=== PATIENT | male | born 1990 | race Caucasian/White ===

== ENCOUNTER 2021-02-13 14:43 | Emergency (ER) | payer MEDICAID, SELFPAY | END 2021-02-13 18:15 | disposition left against medical advice (07) | PROVIDERS: Emergency Provider Emergency Medicine | DX: Z20.2 Contact with and (suspected) exposure to infections with a predominantly sexual mode of transmission (principal) ==

== ENCOUNTER 2021-04-14 14:39 | Emergency (ER) | payer OTHER, SELFPAY ==
[2021-04-14 14:53] VITALS: BP 151/116; PULSE 120; RESP 18; TEMP 37.2; O2SAT 96; BMI 23.0
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
[2021-04-14] MEDS: cefTRIAXone sodium 500 MG, Lidocaine HCl 1 % MPF 1 ML IM (16:24)
[2021-04-14 16:41] VITALS: BP 130/69; PULSE 120; RESP 18; O2SAT 96
[2021-04-15 09:10] LABS: CT PCR NOT DETECTED (Not Detect.); NG PCR NOT DETECTED (Not Detect.)
== END 2021-04-14 16:48 | disposition home or self-care (01) ==
PROVIDERS: Physician Assistant; Emergency Provider Emergency Medicine
DX: A64 Unspecified sexually transmitted disease (principal)
CPT/HCPCS: 87491; 87591; 99283; J0696

== ENCOUNTER 2021-11-11 15:26 | Emergency (ER) | payer OTHER, SELFPAY ==
[2021-11-11 15:48] VITALS: BP 147/88; PULSE 81; RESP 18; TEMP 37.2; O2SAT 99; BMI 24.0
[2021-11-11 16:29] LABS: MANUAL DIFF FLAG NO
[2021-11-11 16:33] LABS: Basophils Absolute Auto 0.1 X10*3/uL (0.0-0.2); Basophils Percent Auto 0.6 % (0-2); Eosinophils Absolute Auto 0.1 X10*3/uL (0.0-0.4); Eosinophils Percent Auto 0.7 % (0-4); Hematocrit 42.8 % (42.0-52.0); Hemoglobin 14.2 g/dl (14.0-18.0); Imm Gran Abs Auto 0.03 X10*3/uL (0.00-0.03); Imm Gran Pct Auto 0.3 % (0.0-0.4); Mean Corpuscular HGB Conc 33.2 g/dl (31.0-36.0); Mean Corpuscular Hemoglobin 30.5 pg (27.0-33.0); Mean Platelet Volume 8.6 fL (9.4-12.4); Monocytes Absolute Auto 0.6 X10*3/uL (0.1-1.2); Monocytes Percent Auto 7.2 % (2-11); Neutrophils Absolute Auto 6.9 x10*3/uL (2.0-8.3); Neutrophils Percent Auto 79.2 % (45-73); Platelet Count 388 X10*3/uL (160-400); Red Blood Count 4.65 X10*6/uL (4.60-5.80); Red Cell Distribution Width 11.1 % (11.0-16.0); White Blood Count 8.7 X10*3/uL (4.8-10.8)
[2021-11-11 16:47] LABS: COVID-19 Test Negative (Negative); IDNOW Serial# 16C4AD1C
[2021-11-11 16:51] LABS: Alanine Aminotransferase 22 U/L (0-40); Albumin Level 4.6 g/dL (3.5-5.0); Alkaline Phosphatase 72 U/L (39-117); Anion Gap 15 (12-20); Aspartate Amino Transferase 38 U/L (5-37); Bilirubin Direct 0.4 mg/dL (0.0-0.5); Bilirubin Total 0.7 mg/dL (0.0-1.0); Blood Urea Nitrogen 10 mg/dL (9-16); Calcium 10.1 mg/dL (8.4-10.2); Carbon Dioxide 25 mmol/L (22-29); Chloride 103 mmol/L (96-108); Creatinine Clr Calc Pharmacy 141.5; Estimated Glomerular Filt Rate > 60; Glucose Random 101 mg/dL (60-115); Lipase 18 U/L (8-78); Potassium 4.4 mmol/L (3.3-5.1); Sodium 139 mmol/L (135-145); Total Protein 7.2 g/dL (6.5-8.0)
[2021-11-11] MEDS: Ondansetron ODT 4 MG TAB.RAPDIS TRANSLINGU (17:22)
== END 2021-11-11 22:37 | disposition left against medical advice (07) ==
PROVIDERS: Emergency Provider Emergency Medicine
DX: R51.9 Headache, unspecified (principal); R11.0 Nausea; Z20.822 Contact with and (suspected) exposure to COVID-19
CPT/HCPCS: 80048; 80076; 83690; 85025; 87635; 99281; 99283

== ENCOUNTER 2022-03-24 21:46 | Emergency (ER) | payer MEDICAID, SELFPAY ==
--- NOTE | 2022-03-24 | ECG_ITS ---
Test Reason : tacardya Blood Pressure : / mmHG Vent. Rate : 124 BPM Atrial Rate : 124 BPM P-R Int : 124 ms QRS Dur : 078 ms QT Int : 300 ms P-R-T Axes : 075 072 085 degrees QTc Int : 431 ms Sinus tachycardia Otherwise normal ECG No previous ECGs available Referred By: Generic ED Physician Electronically Signed By:Hadley Allan
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
[2022-03-24 21:52] VITALS: BP 137/103; PULSE 130; RESP 20; TEMP 36.8; O2SAT 98; BMI 24.4
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
[2022-03-25 00:12] VITALS: BP 147/104; PULSE 115; RESP 13; TEMP 36.8; O2SAT 98
[2022-03-25] MEDS: Acetaminophen 325 MG TABLET 650 MG PO (00:39)
[2022-03-25 00:49] LABS: Carbon Monoxide POC 1.5 %
[2022-03-25 01:06] LABS: Carbon Monoxide Refer to POC result
[2022-03-25 02:53] VITALS: BP 136/98; PULSE 95; RESP 12; TEMP 36.8; O2SAT 96
== END 2022-03-25 03:13 | disposition home or self-care (01) ==
PROVIDERS: Emergency Provider Emergency Medicine
DX: R51.9 Headache, unspecified (principal); Z77.29 Contact with and (suspected) exposure to other hazardous substances
CPT/HCPCS: 36415; 70450; 82375; 93005; 99284

== ENCOUNTER 2022-12-17 13:01 | Emergency (ER) | payer OTHER, SELFPAY ==
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
[2022-12-17 13:50] VITALS: BP 143/79; PULSE 94; RESP 16; TEMP 36.9; O2SAT 96; BMI 23.6
[2022-12-17 14:00] LABS: MANUAL DIFF FLAG NO
[2022-12-17 14:02] LABS: Basophils Absolute Auto 0.1 X10*3/uL (0.0-0.2); Basophils Percent Auto 0.8 % (0-2); Eosinophils Absolute Auto 0.1 X10*3/uL (0.0-0.4); Eosinophils Percent Auto 0.9 % (0-4); Hematocrit 47.2 % (42.0-52.0); Hemoglobin 16.1 g/dl (14.0-18.0); Imm Gran Abs Auto 0.04 X10*3/uL (0.00-0.03); Imm Gran Pct Auto 0.3 % (0.0-0.4); Lymphocytes Absolute Auto 2.2 X10*3/uL (1.2-4.9); Lymphocytes Percent Auto 19.1 % (20-40); Mean Corpuscular HGB Conc 34.1 g/dl (31.0-36.0); Mean Corpuscular Hemoglobin 31.4 pg (27.0-33.0); Mean Platelet Volume 8.6 fL (9.4-12.4); Monocytes Percent Auto 8.5 % (2-11); Neutrophils Absolute Auto 8.1 x10*3/uL (2.0-8.3); Neutrophils Percent Auto 70.4 % (45-73); Platelet Count 442 X10*3/uL (160-400); Red Blood Count 5.13 X10*6/uL (4.60-5.80); Red Cell Distribution Width 12.5 % (11.0-16.0); White Blood Count 11.6 X10*3/uL (4.8-10.8)
[2022-12-17 14:48] LABS: Anion Gap 15 (12-20)
[2022-12-17 14:56] LABS: Acetaminophen LAB < 3 mcg/mL (<30); Alanine Aminotransferase 24 U/L (0-40); Alkaline Phosphatase 77 U/L (39-117); Aspartate Amino Transferase 20 U/L (5-37); Bilirubin Total 0.7 mg/dL (0.0-1.0); Blood Urea Nitrogen 14 mg/dL (9-16); Carbon Dioxide 26 mmol/L (22-29); Chloride 105 mmol/L (96-108); Creatinine Clr Calc Pharmacy 122.5; Estimated Glomerular Filt Rate > 60; Ethanol < 10 mg/dL; Glucose Random 102 mg/dL (60-115); Magnesium 2.3 mg/dL (1.6-2.6); Potassium 3.5 mmol/L (3.3-5.1); Salicylate < 5.0 mg/dL (15-30); Sodium 142 mmol/L (135-145); Total Protein 8.1 g/dL (6.5-8.0)
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
[2022-12-17] MEDS: cefTRIAXone sodium 500 MG, Lidocaine HCl 1 % MPF 1 ML IM (15:18)
[2022-12-17] MEDS: metroNIDAZOLE 500 MG TABLET PO (15:18)
[2022-12-17] MEDS: Doxycycline Monohydrate 100 MG CAPSULE PO (15:18)
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
[2022-12-18 05:14] LABS: Syphilis Screen Reactive (Nonreactive)
[2022-12-25 15:20] LABS: RPR Quantitative Reactive 1:1 (Nonreactive); T.Pallidum Particle Agg Test Reactive (Nonreactive)
== END 2022-12-17 15:41 | disposition home or self-care (01) ==
PROVIDERS: Physician Assistant; Emergency Provider Student in an Organized Health Care Education/Training Program
DX: A53.9 Syphilis, unspecified (principal); F41.1 Generalized anxiety disorder; F43.0 Acute stress reaction; T76.21XA Adult sexual abuse, suspected, initial encounter; Z20.2 Contact with and (suspected) exposure to infections with a predominantly sexual mode of transmission; Z79.899 Other long term (current) drug therapy
CPT/HCPCS: 36415; 80053; 80143; 80179; 80307; 83735; 85025; 86592; 86780; 87255; 96372; 99283; 99284; J0696

== ENCOUNTER 2023-02-04 16:56 | Emergency (ER) | payer OTHER, SELFPAY ==
--- NOTE | 2023-02-04 17:05 | ED_ITS ---
HPI - Male Genitourinary General Chief complaint: Urogenital-Male Stated complaint: STD check Time Seen by Provider: 02/04/23 17:38 Source: patient Mode of arrival: ambulatory Limitations: no limitations History of Present Illness HPI Narrative: 32-year-old male presents to the emergency department requesting syphilis testing, patient tested positive in December, patient went away and has not received treatment ever since. Patient has not had any new sexual partners since then or has not been sexually active. No urinary complaints no fevers, chills, headache, vision changes, altered mental status, nausea, vomiting, chest pain and shortness of breath Related Data Previous Rx's Medication Instructions Recorded doxycycline hyclate 100 mg capsule 100 mg PO BID #14 caps 04/14/21 doxycycline hyclate 100 mg capsule 100 mg PO BID 10 days #20 caps 12/17/22 metronidazole 500 mg tablet 500 mg PO BID 7 days #14 tabs 12/17/22 valacyclovir 1 gram tablet 1,000 mg PO BID 5 days #10 tabs 12/17/22 (Valtrex) Allergies Allergy/AdvReac Type Severity Reaction Status Date / Time No Known Allergies Allergy Verified 11/11/21 15:48 [No Known Allergies*] Review of Systems Review of Systems: Constitutional : No Weight loss, No Fever, No Chills, No Fatigue, No Malaise ENT/Mouth : No sore throat, No Rhinorrhea Eyes: No Eye Pain, No Swelling, No Redness Cardiovascular : No Chest Pain, No SOB, No Dyspnea on Exertion, No Orthopnea, No Edema, No Palpitations Respiratory : No Cough, No Sputum, No Wheezing Gastrointestinal : No Nausea, No Vomiting, No Diarrhea, No Constipation, No abdominal Pain, No Hematochezia, No Melena Genitourinary : No Dysuria, No Urinary Frequency, No Hematuria, Musculoskeletal : No joint pain, No Myalgias, No Joint Swelling Skin : No Skin Lesions, No rash Neuro : No Weakness, No Numbness, No Dizziness, No Headache Psych : No Anxiety/Panic, No Depression All other systems reviewed and are negative Yes all other systems are reviewed and are negative [facility] Past Medical History Attestation statement: The following information was validated with the patient. Source: old records reviewed and nursing notes reviewed Physical Exam Vital Signs: Vital Signs: Last Vital Signs Temp 97.8 F 02/04/23 17:07 Pulse 97 02/04/23 17:07 Resp 14 02/04/23 17:07 BP 135/84 02/04/23 17:07 Pulse Ox 96 02/04/23 17:07 O2 Del Method Room Air 02/04/23 17:07 BMI result Body Mass Index 24.8 vss Appearance: Alert.? Oriented X3.? No acute distress.? Head: Normocephalic, atraumatic, no step-offs or deformities CVS:? Pulses normal.? Respiratory: No respiratory distress. Skin: Skin warm and dry.? Normal skin color.? Normal skin turgor.? Extremities: No lower extremity edema.? No calf ttp. 5/5 strength to bilateral upper and lower extremities Neuro: Oriented X 3.? No motor deficit.? No sensory deficit. CN 2-12 intact Course Course Course Narrative: RME: 32 yo M w/PMHx Syphilis+ (Dec) presenting to the ED for syphilis tx. States he was not in the area & has not seeked tx for Syphilis since getting phone call that he was positive. Denies being sexually active since + testing. denies other sx at present CTNG testing ordered (as was not performed in Dec) Will need Tx for Syphilis Full HPI, ROS and PE to be performed by primary ED provider. Medical Decision Making Medical Decision Making [facility] Narrative: 32-year-old male presents requesting syphilis testing Physical exam benign History and physical exam concerning for STD. Will test for gonorrhea and chlamydia. HIV should be tested for in an outpatient setting same as hepatitis. Will treat with penicillin G. Educated patient on diagnosis and treatment plan, answered all question, patient verbalizes understanding. At this time patient will be discharged home, advised to return with new or worsening symptoms. Educated on worrisome signs and symptoms and when to return. At this time I feel comfortable discharge home. Differential Diagnosis Differential Diagnoses: The differential diagnosis associated with the presentation includes History and physical exam concerning for STD. Will test for gonorrhea and chlam ydia. HIV should be tested for in an outpatient setting same as hepatitis. Admission/Observation Consideration of admission/observation: Escalation of care including admission/observation considered Lab Data [facility] Lab Attestation statement: I reviewed the patient's lab results. Labs: Lab Results 02/04/23 Range/Units 17:20 Urine Color Yellow Urine Appearance Clear Urine pH 5.5 (5.0-9.0) Ur Specific [place] 1.020 (1.005-1.025) Urine Protein Negative (Neg-Trace) mg/dL Urine Glucose (UA) Negative (Negative) mg/dL Urine Ketones Negative (Negative) mg/dL Urine Blood Moderate (2+) H (Negative) Urine Nitrite Negative (Negative) Ur Leukocyte Esterase Negative (Negative) Urine RBC 11-20 H (0-2) /HPF Urine WBC 0-5 (0-5) /HPF Ur Squamous Epith Cells 0-2 (0-2) /HPF Urine Bacteria None Seen (None Seen) Hyaline Casts 0-2 (0-2) /LPF Discharge Plan Discharge Clinical Impression: Syphilis Patient Disposition: Home, Self-Care Additional Instructions: Take your medications as prescribed. If you were prescribed antibiotics today, it is important that you take your medication to their entirety, do not skip any doses, do not finish them early. Follow-up with your primary care provider this week. Return to the emergency department with new or worsening symptoms. Such as fevers, chills, chest pain, shortness of breath, nausea, vomiting, dizziness, headache, vision changes, lethargy In case of emergency call 911 Please get full panel STD testing done by her primary care provider. Including HIV, hepatitis-C Prescriptions: No Action doxycycline hyclate 100 mg capsule 100 mg PO BID Qty: 14 0RF doxycycline hyclate 100 mg capsule 100 mg PO BID 10 Days Qty: 20 0RF metronidazole 500 mg tablet 500 mg PO BID 7 Days Qty: 14 0RF valacyclovir [Valtrex] 1 gram tablet 1,000 mg PO BID 5 Days Qty: 10 0RF Referrals: Physician,None [Primary Care Provider] - 2 days
[2023-02-04 17:07] VITALS: BP 135/84; PULSE 97; RESP 14; TEMP 36.6; O2SAT 96; BMI 24.8
[2023-02-04 17:30] LABS: Appearance Urine Clear; Color Urine Yellow; Glucose Urine UA Negative (Negative); Leukocyte Esterase Urine Negative (Negative); Nitrite Urine Negative (Negative); PH 5.5 (5.0-9.0); UMIC TRIGGER UACC YES; Urine Blood Moderate (2+) (Negative); Urine Ketones Negative (Negative); Urine Protein Negative (Neg-Trace)
[2023-02-04 17:32] LABS: Bacteria Urine None Seen (None Seen); Hyaline Casts Urine 0-2 /LPF (0-2); Squamous Epithelial Cell Urine 0-2 /HPF (0-2); WBC Urine 0-5 /HPF (0-5)
[2023-02-04 17:43] VITALS: BP 135/97; PULSE 79; RESP 16; TEMP 36.7; O2SAT 98
[2023-02-04] MEDS: Penicillin G Benzathine 2,400,000 UNIT/4 ML SYRINGE 2400000 UNIT IM (17:51)
[2023-02-05 02:47] LABS: CT PCR NOT DETECTED (Not Detect.); NG PCR NOT DETECTED (Not Detect.)
== END 2023-02-04 18:25 | disposition home or self-care (01) ==
PROVIDERS: Physician Assistant; Emergency Provider Emergency Medicine
DX: A53.9 Syphilis, unspecified (principal)
CPT/HCPCS: 0353U; 81001; 96372; 99284; J0561

== ENCOUNTER 2024-03-12 14:47 | Emergency (ER) | payer MEDICAID, SELFPAY ==
[2024-03-12 15:22] VITALS: BP 128/84; PULSE 100; RESP 19; TEMP 36.6; O2SAT 99; BMI 22.4
--- NOTE | 2024-03-12 15:22 | ED.LOWEXIN ---
HPI - Extremity Injury (Lower) General Chief Complaint: Extremity Injury, Lower Stated Complaint: swollen feet Time Seen by Provider: 03/12/24 15:49 Source: patient, RN notes reviewed and old records reviewed Mode of arrival: ambulatory Limitations: altered mental status History of Present Illness ED Provider: Migdalia GERMAN Narrative: Patient is a 33-year-old male denies past medical history presenting to the emergency department with complaint of bilateral foot pain and swelling after sleeping outside last night. Denies fevers, chills, body aches. Denies drug or alcohol use. History limited as patient appears intoxicated. Denies chest pain, palpitations, dyspnea. Other symptoms: none Related Data Previous Rx's ?Medication ?Instructions ?Recorded doxycycline hyclate 100 mg capsule 100 mg PO BID #14 caps 04/14/21 doxycycline hyclate 100 mg capsule 100 mg PO BID 10 days #20 caps 12/17/22 metronidazole 500 mg tablet 500 mg PO BID 7 days #14 tabs 12/17/22 valacyclovir 1 gram tablet 1,000 mg PO BID 5 days #10 tabs 12/17/22 (Valtrex) Allergies Allergy/AdvReac Type Severity Reaction Status Date / Time No Known Allergies Allergy Verified 03/12/24 15:24 [No Known Allergies*] Review of Systems Review of Systems: As per HPI. Yes all other systems are reviewed and are negative [facility] Social History Social History Smoked in Last 30 Days: Yes Use of substances other than those prescribed or required for medical reasons: No Advance Directives: No Advance Directives Information Provided: No Do you have a plan to hurt others: No Plan Physical Exam Vital Signs: Vital Signs: Last Vital Signs Temp 0 F L 03/12/24 19:44 Pulse 98 03/12/24 19:44 Resp 18 03/12/24 19:44 BP 134/95 H 03/12/24 19:44 Pulse Ox 96 03/12/24 19:44 O2 Del Method Room Air 03/12/24 15:43 BMI result Body Mass Index 22.4 Vital signs have been reviewed and appear to be correct. Blood pressure normal. Heart rate normal. Respiratory rate normal. Temperature normal. Oxygen saturation normal. Const: General: cooperative, no acute distress and intoxicated appearing (wakes to voice, answers 1-2 questions, then falls back asleep) Nutritional Appearance: average body habitus Orientation/consciousness: patient oriented x3 HEENT: Head: Yes normocephalic and Yes atraumatic Ears: hearing grossly normal bilaterally and external ears normal General nose exam: Normal external nose present and Normal nasal mucous membranes and turbinates present Mouth: Normal oral and palatal mucosa present and oropharynx normal Throat: Yes uvula midline Eyes: Pupils: Equal, round and reactive pupils present Neck: Neck: Yes full ROM, Yes trachea midline and Yes supple Resp: Effort & Inspection: normal respiratory effort Auscultation: clear to auscultation bilaterally Cardio: Rate: regular rate Rhythm: regular rhythm Heart sounds: S1 normal heart sound present and S2 normal heart sound present Peripheral pulses: Peripheral pulses 2+ throughout GI: Inspection: Yes normal to inspection Palpation (GI): Soft to palpation and nontender Auscultation: normoactive bowel sounds : General: Yes no CVA tenderness Back/Spine/Pelvis: Back: no CVA tenderness Skin: General skin exam: elasticity normal and turgor normal Neuro: General: patient oriented x3 and moves all extremities Cranial nerves: Yes Equal, round and reactive pupils present Extrem: General: Yes pedal edema (2+) Right lower extremity: foot Details: vascular exam Details: dorsalis pedis pulse present and normal capillary refill Left lower extremity: foot Details: vascular exam Details: dorsalis pedis pulse present, posterior tibial pulse present and normal capillary refill Course Course Course Narrative: This is a Rapid Medical Exam performed in triage by Juana Rene PA-C. Full HPI, ROS and PE to be performed by primary ED provider. 33 yo M presenting to the ED c/o b/l feet swelling & pain x last night s/p spending the night outside. Denies substance use today. Denies IVDA PE: +under the influence, +b/l LE swelling, erythema, warmth & ttp. NV intact Plan: Labs, GOLD Medical Decision Making Medical Decision Making MDM Narrative: Patient is a 33-year-old male denies past medical history presenting to the emergency department with complaint of bilateral foot pain and swelling after sleeping outside last night. On exam patient is awake, A+Ox3, VS WNL, afebrile, lethargic/intoxicated appearing but wakes to voice, physical exam findings as above. Given reported symptoms and physical exam findings, initial differential includes but is not limited to cellulitis, dependent edema, frostbite. Physical exam findings not consistent with cellulitis or frostbite. Labs notable for no leukocytosis, anemia not at transfusable level and no recent for comparison, no elevation of ESR/CRP, normal BNP. EKG shows normal sinus rhythm. Patient became more awake and alert while in the ED,now requesting discharge. Discussed with patient that symptoms likely due to dependent edema, advised him to keep legs elevated while at rest. Return precautions discussed at bedside. Patient verbalized understanding of and agreement with plan. Differential Diagnosis Differential Diagnoses: The differential diagnosis associated with the presentation includes As per [facility] Admission/Observation Consideration of admission/observation: Escalation of care including admission/observation considered Patient would have been admitted to the hospital had their work up had any findings where hospital admission was appropriate and their clinical presentation warranted hospital admission. Lab Data [facility] Lab Attestation statement: I reviewed the patient's lab results. As per [facility] 03/12/24 15:32 03/12/24 15:32 Labs: Lab Results 03/12/24 03/12/24 Range/Units 15:32 17:50 WBC 10.4 (4.8-10.8) X10*3/uL RBC 4.25 L (4.60-5.80) X10*6/uL Hgb 13.3 L (14.0-18.0) g/dl Hct 38.3 L (42.0-52.0) % MCV 90.1 (80.0-98.0) fL MCH 31.3 (27.0-33.0) pg MCHC 34.7 (31.0-36.0) g/dl RDW 11.1 (11.0-16.0) % Plt Count 483 H (160-400) X10*3/uL MPV 8.2 L (9.4-12.4) fL Immature Gran % (Auto) 0.3 (0.0-0.4) % Neut % (Auto) 64.5 (45-73) % Lymph % (Auto) 23.8 (20-40) % Lipscomb % (Auto) 9.0 (2-11) % Eos % (Auto) 1.7 (0-4) % Baso % (Auto) 0.7 (0-2) % Lymph # (Auto) 2.5 (1.2-4.9) X10*3/uL Lipscomb # (Auto) 0.9 (0.1-1.2) X10*3/uL Eos # (Auto) 0.2 (0.0-0.4) X10*3/uL Baso # (Auto) 0.1 (0.0-0.2) X10*3/uL Abs Immat Gran (auto) 0.03 (0.00-0.03) X10*3/uL Absolute Neuts (auto) 6.7 (2.0-8.3) x10*3/uL Absolute Nucleated RBC 0.000 (0.0-0.012) X10*3/uL Nucleated RBC % (auto) 0.0 (0.0-0.2) /100WBC ESR 13 (0-15) MM/HR PT 12.3 (10.9-12.4) SEC INR 1.1 (0.9-1.1) Sodium 143 (135-145) mmol/L Potassium 3.8 (3.3-5.1) mmol/L Chloride 107 (96-108) mmol/L Carbon Dioxide 26 (22-29) mmol/L Anion Gap 14 (12-20) BUN 16 (9-16) mg/dL Creatinine 0.82 (0.5-1.4) mg/dL Estim Creat Clear Calc 133.5 Estimated GFR > 60 Random Glucose 103 (60-115) mg/dL Calcium 9.1 D (8.4-10.2) mg/dL Magnesium 1.9 (1.6-2.6) mg/dL Total Bilirubin 0.2 (0.0-1.0) mg/dL Direct Bilirubin < 0.2 (0.0-0.5) mg/dL AST 24 (5-37) U/L ALT 16 (0-40) U/L Alkaline Phosphatase 107 (39-117) U/L C-Reactive Protein 0.50 (< or = 0.50) mg/dL B-Natriuretic Peptide < 10 (<100) pg/mL Total Protein 7.1 (6.5-8.0) g/dL Albumin 4.1 (3.5-5.0) g/dL Urine Opiates Screen Not Detected (Not Detect) Ur Buprenorphine Scrn Not Detected (Not Detect) ng/mL Ur Oxycodone Screen Not Detected (Not Detect) ng/mL Urine Methadone Screen Not Detected (Not Detect) ng/mL Urine Fentanyl Screen Not Detected (Not Detect) Ur Barbiturates Screen Not Detected (Not Detect) Ur Phencyclidine Scrn Not Detected (Not Detect) Ur Amphetamines Screen POSITIVE H (Not Detect) U Benzodiazepines Scrn Not Detected (Not Detect) Urine Cocaine Screen Not Detected (Not Detect) U Marijuana (THC) Screen Not Detected (Not Detect) Ethyl Alcohol < 10 mg/dL Independent Interpretation I performed an independent interpretation of an: EKG (normal sinus rhythm, rate 91bpm, normal MS interval and QTc) External Record Review External record reviewed: Inpatient record, Office record and Outpatient record Attestation Attending Attestation: I was personally present and available for consultation in the ED. I have reviewed everything on the chart that is available and agree with the documentation provided by the MICHAEL including discussion about the assessment, treatment plan and discussion. Based on medical record the care appears appropriate. Hao Shipley MD [facility] Emergency Medicine Discharge Plan Discharge Clinical Impression: Pedal edema Patient Disposition: Home, Self-Care Instructions: Leg Edema (ED), Edema (ED) Additional Instructions: You were evaluated in the emergency department today for foot pain and swelling. Your feet do not appear acutely infected at this time. We recommend that you keep your feet elevated while at rest to decrease the swelling. Follow up with your primary care provider or the clinic. Return to the emergency department for increased redness, swelling, fever, change of color in your feet/legs. Prescriptions: No Action doxycycline hyclate 100 mg capsule 100 mg PO BID Qty: 14 0RF doxycycline hyclate 100 mg capsule 100 mg PO BID 10 Days Qty: 20 0RF metronidazole 500 mg tablet 500 mg PO BID 7 Days Qty: 14 0RF valacyclovir [Valtrex] 1 gram tablet 1,000 mg PO BID 5 Days Qty: 10 0RF Interventions: ED Discharge Assessment Last Done: 03/12/24 19:44 Discharge Date/Time: 03/12/24 19:46 Print Language: Stateless
[2024-03-12 15:38] LABS: MANUAL DIFF FLAG NO
[2024-03-12 15:40] LABS: Basophils Absolute Auto 0.1 X10*3/uL (0.0-0.2); Basophils Percent Auto 0.7 % (0-2); Eosinophils Absolute Auto 0.2 X10*3/uL (0.0-0.4); Eosinophils Percent Auto 1.7 % (0-4); Hematocrit 38.3 % (42.0-52.0); Hemoglobin 13.3 g/dl (14.0-18.0); Imm Gran Abs Auto 0.03 X10*3/uL (0.00-0.03); Imm Gran Pct Auto 0.3 % (0.0-0.4); Lymphocytes Absolute Auto 2.5 X10*3/uL (1.2-4.9); Lymphocytes Percent Auto 23.8 % (20-40); Mean Corpuscular HGB Conc 34.7 g/dl (31.0-36.0); Mean Corpuscular Hemoglobin 31.3 pg (27.0-33.0); Mean Corpuscular Volume 90.1 fL (80.0-98.0); Mean Platelet Volume 8.2 fL (9.4-12.4); Monocytes Absolute Auto 0.9 X10*3/uL (0.1-1.2); Neutrophils Absolute Auto 6.7 x10*3/uL (2.0-8.3); Neutrophils Percent Auto 64.5 % (45-73); Platelet Count 483 X10*3/uL (160-400); Red Blood Count 4.25 X10*6/uL (4.60-5.80); Red Cell Distribution Width 11.1 % (11.0-16.0); White Blood Count 10.4 X10*3/uL (4.8-10.8)
[2024-03-12 15:43] VITALS: BP 134/95; PULSE 98; RESP 11; O2SAT 96
[2024-03-12 15:46] LABS: INTERNATIONAL NORM RATIO 1.1 (0.9-1.1); Prothrombin Time 12.3 SEC (10.9-12.4)
--- NOTE | 2024-03-12 15:49 | PC.NURSE ---
security came and checked the patient's bag and patted him down as very sleepy when he first arrived. refusing to obtain a urine sample at this time. Nothing was found in his bags or on his person
[2024-03-12 15:54] LABS: Alanine Aminotransferase 16 U/L (0-40); Albumin Level 4.1 g/dL (3.5-5.0); Alkaline Phosphatase 107 U/L (39-117); Anion Gap 14 (12-20); Aspartate Amino Transferase 24 U/L (5-37); Bilirubin Direct < 0.2 mg/dL (0.0-0.5); Bilirubin Total 0.2 mg/dL (0.0-1.0); Blood Urea Nitrogen 16 mg/dL (9-16); Calcium 9.1 mg/dL (8.4-10.2); Carbon Dioxide 26 mmol/L (22-29); Chloride 107 mmol/L (96-108); Creatinine Clr Calc Pharmacy 133.5; Estimated Glomerular Filt Rate > 60; Glucose Random 103 mg/dL (60-115); Magnesium 1.9 mg/dL (1.6-2.6); Potassium 3.8 mmol/L (3.3-5.1); Sodium 143 mmol/L (135-145); Total Protein 7.1 g/dL (6.5-8.0)
[2024-03-12 16:02] LABS: B Type Natriuretic Peptide < 10 pg/mL (<100)
--- NOTE | 2024-03-12 16:07 | ECG_ITS ---
Test Reason : cp Blood Pressure : */* mmHG Vent. Rate : 91 BPM Atrial Rate : 91 BPM P-R Int : 136 ms QRS Dur : 88 ms QT Int : 344 ms P-R-T Axes : 74 55 69 degrees QTcB Int : 423 ms Normal sinus rhythm Normal ECG When compared with ECG of 24-Mar-2022 22:01, No significant change was found Referred By: Marilee Negron Electronically Signed By: KAMALA CHERY
[2024-03-12 16:27] LABS: Erythrocyte Sedimentation Rate 13 MM/HR (0-15)
[2024-03-12 18:23] LABS: Amphetamine Screen Urine POSITIVE (Not Detect); Barbiturates, Urine Not Detected (Not Detect); Benzodiazepines Screen Urine Not Detected (Not Detect); Buprenorphine Scr Not Detected (Not Detect); Cannabinoid Screen Urine Not Detected (Not Detect); Cocaine Screen Urine Not Detected (Not Detect); Fentanyl, urine Not Detected (Not Detect); Methadone Screen, Urine Not Detected (Not Detect); Opiate Screen Urine Not Detected (Not Detect); Oxycodone Screen Urine Not Detected (Not Detect); Phencyclidine Screen Urine Not Detected (Not Detect)
--- NOTE | 2024-03-12 19:36 | PC.NURSE ---
This RN assumed pt care @ 1900. This RN asked pt if he could supply UA, pt began to use profanity and yell for food. Plan of care ongoing.
[2024-03-12 19:44] VITALS: BP 134/95; PULSE 98; RESP 18; TEMP -17.7; TEMP 0; O2SAT 96
[2024-03-12 19:49] LABS: Ethanol < 10 mg/dL
== END 2024-03-12 19:46 | disposition home or self-care (01) ==
PROVIDERS: Physician Assistant; Registered Nurse Emergency; Emergency Provider Emergency Medicine
DX: R60.0 Localized edema (principal); M79.672 Pain in left foot; M79.671 Pain in right foot
CPT/HCPCS: 36415; 80048; 80076; 80307; 83735; 83880; 85025; 85610; 85652; 86140; 93005; 99284

== ENCOUNTER → 2024-03-12 16:07 | Outpatient (BNV) | payer MEDICAID, SELFPAY | PROVIDERS: Emergency Provider Emergency Medicine; Visit Provider Internal Medicine | DX: R07.9 Chest pain, unspecified (principal) | CPT/HCPCS: 93010 ==

== ENCOUNTER 2024-08-31 01:01 | Emergency (ER) | payer MEDICAID, SELFPAY ==
[2024-08-31 01:15] VITALS: BP 126/87; PULSE 83; RESP 20; TEMP 36.6; O2SAT 97; BMI 25.4
--- OUTSIDE RECORDS SUMMARY | 2024-08-31 01:26 | XMS_ITS | Clinical Summary ---
Author Organization [facility] Address [address] [place] [address] Care Team Providers Care Parts Department Supervisor Name Role Phone Pcp, No Primary Care Provider Unavailabl e Allergies No known active allergies Medications * This document contains information received from the source organization and may not represent a complete record from that organization. risperiDONE (RisperDAL) 0.5 MG tabletIndicatio ns:Schizoaffect jose disorder, bipolar type (HCC) Take 1 tablet (0.5 mg total) by mouth 2 (two) times a day. 20 tablet 2 06/25/2021 Active traZODone (DESYREL) 50 MG tabletIndicatio ns:Schizoaffect jose disorder, bipolar type (HCC) Take 1 tablet (50 mg total) by mouth nightly as needed for sleep. 10 tablet 06/25/2021 Active Active Problems Problem Noted Date Diagnosed Date Agitation 11/16/2023 Methamphetamine abuse 06/20/2021 Schizoaffective disorder, bipolar type 2 Alteration in patient safety due to identified s uicide risk 12/31/2020 Overview (12/31/2020): Images from the original note were not included. [place] [facility] [place] [address] MY SAFETY PLAN Name: Lester Eduardo Date: 12/31/2020 MR#: [id number] The one thing that is most important to me and worth living for is: My sons, my well-being, my family, friends, girlfriends. Step 1 - Warning Signs [thoughts, images, mood, situation, behavior] that a crisis may be developin. Depression 2. Lonely feelings 3. Abandonment feelings Step 2 - Coping strategies: things I can do to take my mind off of my problems without contacting others [relaxation technique; physical exercise] 1. Reading 2. Cooking 3. Movies Step 3 - People and social settings that provide distraction 1. Name: Hannah Duran 2. Name: Mom (Uyen Mascorro) 3. Place: [facility] 4. Place: Mall and grocery store Step 4 - People whom I can ask for help: 1. Name: Hannah 2. Name: Jordon 3. Name: Phone: Step 5 - Professionals or agencies I can contact during a crisis 1. Name: [facility] Phone: 2. Name: [facility] 3. Name: Phone: Additional Resources: [place] infoline 211, Suicide Prevention Lifeline 5-872-578-WHDT (7764), Text Hello to 443505, 417 Step 6 - Making the environment safe/access to guns: No access to guns This tool has been adapted from the [employer] Safety Plan [facility] Form 412694 R10-18 Pg 1 of 1 GERD (gastroesophageal reflux disease) 1 Schizoaffective disorder 12/25/2020 Encounters * This document contains information received from the source organization and may not represent a complete record from that organization. Date Type Department Care Team Description 08/21/2024 12:13 PM EDT - 08/21/2024 12:58 PM EDT Emergency [facility] Emergency Department [address] [place] [id number] Superficial laceration of face (Primary Dx) Discharge Disposition: Home or Self Care 08/21/2024 Travel 07/10/2024 6:56 AM EDT - 07/10/2024 12:32 PM EDT Emergency [facility] Emergency Department [address] [facility] [place] [address] Po Hawk MD Homelessness (Primary Dx) Discharge Disposition: Home or Self Care 07/10/2024 Travel 06/25/2024 6:55 PM EDT - 06/27/2024 8:58 AM EDT Hospital Encounter [facility] Emergency Department [address] [facility] [place] [address] Lissy Galvan MD Methamphetamine dependence, continuous (HCC) (Primary Dx); Schizoaffective disorder (HCC); Abrasion, nose w/o infection; Right-sided chest pain; Schizoaffective disorder, subchronic condition (HCC); Other chest pain; Nose abrasion, non-infected; Accidentally struck by stationary object, initial encounter; Hallucinogen abuse, continuous (HCC); Anxiety disorder of childhood or adolescence; Attention deficit hyperactivity disorder (ADHD), unspecified ADHD type; Depressive type psychosis; Cigarette smoker; Previous known suicide attempt; Lack of housing Discharge Disposition: Home or Self Care 06/25/2024 Travel from Last 3 Months Immunizations Immunization Administration Dates Next Due Influenza Inactivated/Split Preservative Free IM 06/25/2021(),12/31/2020 Family History Medical History Relation Name Comments No Known Problems Father No Known Problems Mother Relation Name Status Comments Father Mother Social History Tobacco Use Types Packs/Day Years Used Date Smoking Tobacco: Every Day Cigarettes Smokeless Tobacco: Never Tobacco Cessation:Ready to Q uit: No; Counseling Given: Yes Alcohol Use Standard Drinks/Week Comments Not Currently 0 (1 standard drink = 0.6 oz pur e alcohol) Pt reports he drinks socialy Sex and Gender Information Value Date Recorded Sex Assigned at Male 12/25/2020 7:08 AM EST Legal Sex Male 5:26 PM EST Gender Identity Male 12/25/2020 7:08 AM EST Sexual Orientation Choose not to disclose 2021 12:05 PM EST Sexual Orientation Heterosexual (straight) 03/10 /2022 12:05 PM EST Last Filed Vital Signs Vital Sign Reading Time Taken Comments Blood Pressure 110/78 08/21/2024 12:11 PM EDT Pulse 86 08/21/2024 12:11 PM EDT Temperature 36.1 C (97 F) 08/21/2024 12:11 PM EDT Respiratory Rate 18 08/21/2024 12:11 PM EDT Oxygen Saturation 99% 08/21/2024 12:11 PM EDT Inhaled Oxygen Concentration - - Weight 68.9 kg (152 lb) 06/20/2021 2:38 PM EDT Height 180.3 cm (5' 11 ) 06/20/2021 2:38 PM EDT Body Mass Index 21.2 06/20/2021 2:38 PM EDT Plan of Treatment Health Maintenance Due Date Last Done Comments Hepatitis C Virus Screening 1991 HIV Screening 11/26/2004 DTaP/Tdap/Td Vaccines (1 - Tdap) 11/26/2010 Hepatitis B Vaccines (1 of 3 - 19+ 3-dose series) 11/26/2010 Pneumococcal Vaccine: Pediatric (0-5 Years) and At-Risk Patients (6 to 49 Years) (1 of 2 - PCV) 11/26/2010 COVID-19 Vaccine (2023-2 5 season) 2023 Influenza Vaccine 09/09/2024 12/31/2020, 12/31/2020 HPV Vaccines Aged Out No longer eligi ble based on patient's age to complete this topic Procedures Procedure Name Priority Date/Time Associated Diagnosis Comments PHENCYCLIDINE (PCP) SCREEN, URINE STAT 06/27/2024 12:32 AM EDT OXYCODONE SCREEN, URINE STAT 06/28/19 12:32 AM EDT OPIATE SCREEN, URINE STAT 06/27/2024 12:32 AM EDT METHADONE SCREEN, URINE STAT 06/28/19 12:32 AM EDT FENTANYL SCREEN, URINE FNTYL5 STAT 06/27/2024 12:32 AM EDT ETHANOL, URINE STAT 06/27/2024 12:32 AM EDT COCAINE SCREEN, URINE STAT 06/27/2024 12:32 AM EDT CANNABINOID SCREEN, URINE STAT 06/27/2024 12:32 AM EDT BUPRENORPHINE SCREEN, URINE STAT 06/27/2024 12:32 AM EDT BENZODIAZEPINE SCREEN, URINE STAT 06/27/2024 12:32 AM EDT BARBITURATE SCREEN, URINE STAT 06/27/2024 12:32 AM EDT AMPHETAMINE SCREEN, URINE STAT 06/27/2024 12:32 AM EDT ECG 12-LEAD STAT 06/25/2024 7:46 PM EDT XR CHEST 1 VIEW-PORTABLE STAT 06/25/2024 7:30 PM EDT POCT ALCOHOL BREATH TEST (ED) Routine 06/25/2024 6:59 PM EDT from Last 3 Months Results * Fentanyl Screen, Urine (06/27/2024 12:32 AM EDT) Fentanyl Screen, Urine Negative Negative <5 ng/mL 06/27/2024 1:30 AM EDT [facility] Comment: * FOR MEDICAL PURPOSES ONLY * Confirmation upon request. Urine Voided urine specimen / Unknown 06/27/2024 12:32 AM EDT 06/27/2024 12:39 AM EDT us Phuong Efendic LEGAL BILLING SPECIALIST URINE ORDERABLES Final Result [address] [address], [address] [address] * Methadone Screen, Urine (06/27/2024 12:32 AM EDT) Methadone Screen, Urine Negative Negative <300 ng/mL 06/27/2024 1:30 AM EDT [facility] Comment:* FOR MEDICAL PURPOS ES ONLY * Urine Urine specimen / Unknown 06/27/2024 12:32 AM EDT 06/27/2024 12:39 AM EDT us Phuong Efendic LEGAL BILLING SPECIALIST URINE ORDERABLES Final Result Performing Organization Address City/[facility]/ZIP Co de Phone Number [address] [address], [address] [address] * (ABNORMAL) Cannabinoid Screen, Urine (06/27/2024 12:32 AM EDT) Cannabinoid Screen, Urine Positive( A) Negative <50 ng/mL 06/27/2024 1:30 AM EDT [facility] Comment: * FOR MEDICAL PURPOSES ONLY * Confirmation upon request. Urine Urine specimen / Unknown 06/27/2024 12:32 AM EDT 06/27/2024 12:39 AM EDT us Phuong Efendic LEGAL BILLING SPECIALIST URINE ORDERABLES Final Result Performing Organization Address [facility] [place] [address], [address] [address] * Buprenorphine Screen, Urine (06/27/2024 12:32 AM EDT) Buprenorphine Screen, Urine Negative Negative <5 ng/mL 06/27/2024 1:30 AM EDT [facility] Comment:* FOR MEDICAL PURPOS ES ONLY * Urine Urine specimen / Unknown 06/27/2024 12:32 AM EDT 06/27/2024 12:39 AM EDT us Phuong Efendic LEGAL BILLING SPECIALIST URINE ORDERABLES Final Result Performing Organization Address [facility] Co de Phone Number [address] [address], [address] [address] * Phencyclidine (PCP) Screen, Urine (06/27/2024 12:32 AM EDT) PCP Screen, Urine Negative Negative <25 ng/mL 06/27/2024 1:30 AM EDT [facility] Comment:* FOR MEDICAL PURPOS ES ONLY * Urine Urine specimen / Unknown 06/27/2024 12:32 AM EDT 06/27/2024 12:39 AM EDT us Phuong Efendic LEGAL BILLING SPECIALIST URINE ORDERABLES Final Result Performing Organization Address [facility] Co de Phone Number [address] [address], [address] [address] * Oxycodone Screen, Urine (06/27/2024 12:32 AM EDT) Oxycodone Screen, Urine Negative Negative <100 ng/mL 06/27/2024 1:30 AM EDT [facility] Comment:* FOR MEDICAL PURPOS ES ONLY * Urine Urine specimen / Unknown 06/27/2024 12:32 AM EDT 06/27/2024 12:39 AM EDT Phuong Efendic LEGAL BILLING SPECIALIST URINE ORDERABLES Final Result Performing Organization Address [facility] Co de Phone Number [address] [address], [address] [address] * Opiate Screen, Urine (06/27/2024 12:32 AM EDT) Opiate, Urine Negative Negative <300 ng/mL 06/27/2024 1:30 AM EDT [facility] Comment:* FOR MEDICAL PURPOS ES ONLY * Urine Urine specimen / Unknown 06/27/2024 12:32 AM EDT 06/27/2024 12:39 AM EDT us Phuong Efendic LEGAL BILLING SPECIALIST URINE ORDERABLES Final Result [address] [address], [address] [address] * Ethanol, Urine (06/27/2024 12:32 AM EDT) Ethanol, Urine Negative Negative <11 mg/dL 06/27/2024 1:30 AM EDT [facility] Urine Urine specimen / Unknown 06/27/2024 12:32 AM EDT 06/27/2024 12:39 AM EDT us Phuong Efendic LEGAL BILLING SPECIALIST URINE ORDERABLES Final Result Performing Organization Address [facility] Co de Phone Number [address] [address], [address] [address] * Cocaine Screen, Urine (06/27/2024 12:32 AM EDT) Cocaine Screen, Urine Negative Negative <300 ng/mL 06/27/2024 1:30 AM EDT [facility] Comment:* FOR MEDICAL PURPOS ES ONLY * Urine Urine specimen / Unknown 06/27/2024 12:32 AM EDT 06/27/2024 12:39 AM EDT us Phuong Efendic LEGAL BILLING SPECIALIST URINE ORDERABLES Final Result Performing Organization Address [facility] Co de Phone Number [address] [address], [address] [address] * Benzodiazepine Screen, Urine (06/27/2024 12:32 AM EDT) Benzodiazepine Screen, Urine Negative Negative <200 ng/mL 06/27/2024 1:30 AM EDT [facility] Comment:* FOR MEDICAL PURPOS ES ONLY * Urine Urine specimen / Unknown 06/27/2024 12:32 AM EDT 06/27/2024 12:39 AM EDT us Phuong Efendic LEGAL BILLING SPECIALIST URINE ORDERABLES Final Result Performing Organization Address [facility] Co de Phone Number [address] [address], [address] [address] * Barbiturate Screen, Urine (06/27/2024 12:32 AM EDT) Barbiturate Screen, Urine Negative Negative <200 ng/mL 06/27/2024 1:30 AM EDT [facility] Comment:* FOR MEDICAL PURPOS ES ONLY * Urine Urine specimen / Unknown 06/27/2024 12:32 AM EDT 06/27/2024 12:39 AM EDT Phuong Efendic LEGAL BILLING SPECIALIST URINE ORDERABLES Final Result Performing Organization Address [facility] Co de Phone Number [address] [address], [address] [address] * (ABNORMAL) Amphetamine Screen, Urine (06/27/2024 12:32 AM EDT) Amphetamine Screen, Urine Positive( A) Negative <1000 ng/mL 06/27/2024 1:53 AM EDT [facility] Comment: * FOR MEDICAL PURPOSES ONLY * Confirmation upon request. Urine Urine specimen / Unknown 06/27/2024 12:32 AM EDT 06/27/2024 12:39 AM EDT Phuong Efendic LEGAL BILLING SPECIALIST URINE ORDERABLES Final Result Performing Organization Address [facility] Co de Phone Number [address] [address], [address] [address] * ECG 12 lead (06/25/2024 7:46 PM EDT) Ventricular rate 68 BPM EKG [facility] Atrial rate 68 BPM EKG [facility] P-R interval 132 ms EKG [facility] QRS duration 96 ms EKG [facility] Q-T interval 398 ms EKG [facility] QTC calculation (Bazett) 424 ms EKG [facility] P axis 22 degrees EKG [facility] R axis 74 degrees EKG [facility] T axis 68 degrees EKG [facility] 06/25/2024 7:46 PM EDT Narrative [facility] - 06/26/2024 7:42 PM EDT Normal sinus rhythm Normal ECG When compared with ECG of 16-Nov-2023 12:50, Vent. rate has decreased by 43 bpm Confirmed by MD Altamirano Eric ([id number]) on 06/26/2024 7:42:42 PM Procedure Note Jos Altamirano MD - 06/26/2024 Normal sinus rhythm Normal ECG When compared with ECG of 16-Nov-2023 12:50, Vent. rate has decreased by 43 bpm Confirmed by MD Altamirano Eric ([id number]) on 06/26/2024 7:42:42 PM Regine THOMAS ECG ORDERABLES Final Result [facility] * XR Chest 1 view-Portable (06/25/2024 7:30 PM EDT) Anatomical Region Laterality Modality Chest Computed Radiogr aphy 06/25/2024 7:12 PM EDT Impressions 06/26/2024 4:48 AM EDT No acute pulmonary disease. Interpreted by: Simone Aguilar MD Autism Motor Specialist I personally reviewed the images and the resident's preliminary report and AGREE with the report as it is now presented ([email or web address]). Narrative 06/26/2024 4:48 AM EDT EXAMINATION: XR CHEST 1 VIEW PORTABLE CLINICAL INFORMATION: Right sided chest pain COMPARISON: Chest radiograph 01/10/2018 TECHNIQUE: AP view of the chest was obtained. FINDINGS: The lungs are adequately expanded. There is no focal consolidation, effusion, or edema. No pneumothorax. The cardiomediastinal silhouette is within normal limits. No acute osseous abnormality. Procedure Note Solitario Dickson MD - 06/26/2024 EXAMINATION: XR CHEST 1 VIEW PORTABLE CLINICAL INFORMATION: Right sided chest pain COMPARISON: Chest radiograph 01/10/2018 TECHNIQUE: AP view of the chest was obtained. FINDINGS: The lungs are adequately expanded. There is no focal consolidation, effusion, or edema. No pneumothorax. The cardiomediastinal silhouette is within normal limits. No acute osseous abnormality. IMPRESSION: No acute pulmonary disease. Interpreted by: Simone Aguilar MD Autism Motor Specialist I personally reviewed the images and the resident's preliminary report and AGREE with the report as it is now presented ([email or web address]). us Regine THOMAS IMG DIAGNOSTIC IMAGING ORDERA BLES Final Result * POCT Alcohol Breath Test (06/25/2024 6:59 PM EDT) Breath Alcohol 0.000 Breath 06/25/2024 6:59 PM EDT us Regine THOMAS POINT OF CARE TEST ORDERABLES Final Result from Last 3 Months Insurance - [facility] [address] [id number] Advance Directives * Full Code (Latest Code Status on File) Date Activated Date Inactivated Comments 06/25/2024 10:01 PM 07/10/2024 6:28 AM * Full Code Date Activated Date Inactivated Comments 11/16/2023 7:24 AM 12/24/2023 10:53 PM * Full Code Date Activated Date Inactivated Comments 06/20/2021 12:53 PM 03/10/2022 2:17 AM * Full Code Date Activated Date Inactivated Comments 12/25/2020 12:26 PM 06/12/2021 3:41 AM Healthcare Agents on File Name Relationship Healthcare Agent Relationshi p Communication Hannah Duran Other 1. [facility] Care Represent tive Care Teams Parts Department Supervisor Relationship Specialty Start Date End Date Pcp, No [address] [place] [address] PCP - General 03/18/20
--- NOTE | 2024-08-31 02:28 | ED.DENTAL ---
HPI - Dental/Oral General Chief complaint: Dental/Oral Stated complaint: dental pain Time Seen by Provider: 08/31/24 02:26 Source: patient Mode of arrival: ambulatory Limitations: no limitations History of Present Illness ED Provider: Doug THOMAS HPI Narrative: The patient is a 33-year-old male presenting to the ED for evaluation of dental pain. The patient reports he has been experiencing dental pain of the right lower molars for the past year, has not seen a PCP or dentist in the last year. Denies any recent dental work. The patient denies associated fever/chills, nausea, vomiting, or other systemic complaint. The patient denies drainage. Of note the patient needed to be woken from sleep to initiate interview and exam. During interview patient required frequent redirection to stay awake and answer questions. Related Data Previous Rx's ?Medication ?Instructions ?Recorded doxycycline hyclate 100 mg capsule 100 mg PO BID #14 caps 04/14/21 doxycycline hyclate 100 mg capsule 100 mg PO BID 10 days #20 caps 12/17/22 metronidazole 500 mg tablet 500 mg PO BID 7 days #14 tabs 12/17/22 valacyclovir 1 gram tablet 1,000 mg PO BID 5 days #10 tabs 12/17/22 (Valtrex) acetaminophen 500 mg capsule 1,000 mg (2 x 500 mg) PO .q8 PRN 08/31/24 fever or pain #30 caps amoxicillin 875 mg-potassium 1 tab PO BID #10 tabs 08/31/24 clavulanate 125 mg tablet ibuprofen 600 mg tablet 600 mg PO Q8H PRN fever or pain 08/31/24 #30 tabs Allergies Allergy/AdvReac Type Severity Reaction Status Date / Time No Known Allergies (No Known Allergy Verified 08/31/24 01:18 Allergies*) Review of Systems Review of Systems: Yes all other systems are reviewed and are negative PMFSH Social History Social History Advance Directives: No Advance Directives Information Provided: Yes Physical Exam Vital Signs: Vital Signs: Last Vital Signs Temp 98.4 F 08/31/24 02:59 Pulse 87 08/31/24 02:59 Resp 16 08/31/24 02:59 BP 131/75 08/31/24 02:59 Pulse Ox 95 08/31/24 02:59 O2 Del Method Room Air 08/31/24 02:59 BMI result Body Mass Index 25.4 CONSTITUTIONAL: The patient appears non-toxic, well nourished and in no acute distress. Vital signs as documented. HEAD: Atraumatic, normocephalic. EYES: EOMs grossly intact, pupils equal, conjunctiva clear, no exudate. ENT: Nares patent, no discharge. Airway patent, no audible stridor, visible mucosa is pink and moist without noted lesions. There are multiple dental caries, however there was no drainable abscess noted. NECK: trachea is midline, no obvious masses or gross abnormalities. No anterior cervical lymphadenopathy. CHEST: Symmetric movement, normal appearance. LUNGS: Non-labored work of breathing. CARDIAC: No evidence of hypoperfusion. ABDOMEN: Nondistended, no obvious injury. : Deferred. EXTREMITIES: Moves all extremities spontaneously without reported pain. No obvious injury or deformity noted. NEURO: Alert and oriented x3, CN II-XII appear grossly intact. Cerebellar Functioning grossly intact. Speech clear and appropriate. SKIN: Warm, dry, color appropriate. No rashes or lesions noted. Medications Administered Discontinued Medications Generic Name Dose Route Start Last Admin Trade Name Freq PRN Reason Stop Dose Admin Acetaminophen 975 mg 08/31/24 02:53 08/31/24 02:58 Acetaminophen 325 Mg Tablet PO 08/31/24 02:54 975 mg ONCE ONE Administration Amoxicillin/Clavulanate Potassium 875 mg 08/31/24 02:53 08/31/24 02:59 Amoxicillin/Potassium Clav 875 Mg Tablet PO 08/31/24 02:54 875 mg ONCE ONE Administration Ibuprofen 600 mg 08/31/24 02:53 08/31/24 02:59 Ibuprofen 600 Mg Tablet PO 08/31/24 02:54 600 mg ONCE ONE Administration Medical Decision Making Medical Decision Making [facility] Narrative: 2:59 AM 08/31/2024 (Demetra THOMAS): Patient is a 33-year-old male presenting to the ED for evaluation of dental pain for the past year, patient appears in no acute distress, exam is benign, no drainable abscess identified. Patient will be treated with anti-inflammatories and Augmentin and we will discharge with outpatient follow up. External Record Review External record reviewed: Outpatient record Prescription Management I considered prescription management with: Pain Medication and Antibiotic Discharge Plan Discharge Clinical Impression: Toothache Patient Disposition: Home, Self-Care Instructions: Toothache (ED) Prescriptions: New amoxicillin-pot clavulanate 875-125 mg tablet 1 tab PO BID Qty: 10 0RF ibuprofen 600 mg tablet 600 mg PO Q8H PRN (Reason: fever or pain) Qty: 30 0RF acetaminophen 500 mg capsule 1,000 mg PO .q8 PRN (Reason: fever or pain) Qty: 30 0RF No Action doxycycline hyclate 100 mg capsule 100 mg PO BID Qty: 14 0RF doxycycline hyclate 100 mg capsule 100 mg PO BID 10 Days Qty: 20 0RF metronidazole 500 mg tablet 500 mg PO BID 7 Days Qty: 14 0RF valacyclovir [Valtrex] 1 gram tablet 1,000 mg PO BID 5 Days Qty: 10 0RF Referrals: Luther Barnes DDS [Physician, Dentistry] Clinical Impression: Toothache PhysicianTommy [Primary Care Provider, Medical] Clinical Impression: Toothache Print Language: Moroccan
[2024-08-31 02:59] VITALS: BP 131/75; PULSE 87; RESP 16; TEMP 36.9; O2SAT 95
--- NOTE | 2024-08-31 03:07 | PC.NURSE ---
provider into assess pt, medicated per mar. pt resting in stretcher
[2024-08-31 03:11] VITALS: BP 131/75; PULSE 87; RESP 16; TEMP 36.9; O2SAT 95
--- NOTE | 2024-08-31 03:12 | PC.NURSE ---
Reviewed discharge instructions with pt. pt verbalized understanding, no sign of distress. pt ambulated with a steady gait
== END 2024-08-31 03:14 | disposition home or self-care (01) ==
PROVIDERS: Emergency Provider Emergency Medicine
DX: K02.9 Dental caries, unspecified (principal); K08.89 Other specified disorders of teeth and supporting structures
CPT/HCPCS: 99283; 99284

== ENCOUNTER 2024-11-11 02:22 | Emergency (ER) | payer MEDICAID, SELFPAY ==
[2024-11-11 02:24] VITALS: BP 146/83; PULSE 89; RESP 20; TEMP 36.6; O2SAT 98; BMI 24.4
--- OUTSIDE RECORDS SUMMARY | 2024-11-11 04:20 | XMS_ITS ---
Author Name [facility] Organization Unknown Results Test Name/Text Value Interpretation Date Range Source OPIATES, URINE Negative 10/05/2024 - [facility] COCAINE METABOLITES URINE Negative 10/05/2024 - [facility] CANNABINOID Positive Abnormal 10/05/2024 - [facility] BENZODIAZEPINE, URINE Negative 10/05/2024 - [facility] ETHANOL <10.0 mg/dL 10/05/2024 [facility] SALICYLATES <5.0 mg/dL 10/05/2024 4 - 30 [facility] ACETAMINOPHEN <3.0 ug/mL 10/05/2024 [facility] GLOMERULAR FILTRATION RATE ML/MIN/1.73 SQ M.PREDICTED 103.0 mL/min/1.73m*2 10/05/2024 60 - [facility] GLUCOSE 97.0 mg/dL 10/05/2024 70 - 200 [facility] POTASSIUM 3.4 mmol/L Below low normal 10/05/2024 3.6 - 5.1 [facility] CREATININE 1.0 mg/dL 10/05/2024 0.6 - 1.2 [facility] ANION GAP 10.0 mmol/L 10/05/2024 3 - 11 [facility] SODIUM 137.0 mmol/L 10/05/2024 137 - 144 [facility] CHLORIDE 102.0 mmol/L 10/05/2024 100 - 111 [facility] BICARBONATE 25.0 mmol/L 10/05/2024 23 - 32 [facility] CALCIUM, TOTAL 9.2 mg/dL 10/05/2024 8.4 - 10.2 [facility] UREA NITROGEN 17.0 mg/dL 10/05/2024 8 - 24 [facility] MCHC 34.4 g/dL 10/05/2024 32 - 36 [facility] RBC DISTRIBUTION WIDTH 11.3 % Below low normal 10/05/2024 11.6 - 14.8 [facility] LYMPHOCYTE % 20.7 % 10/05/2024 20 - 50 [facility] HEMATOCRIT 37.8 % Below low normal 10/05/2024 40 - 52 [facility] MPV 8.4 fL Below low normal 10/05/2024 9.4 - 12.4 [facility] HEMOGLOBIN 13.0 g/dL 10/05/2024 13 - [address] [facility] [address] 8.35 10*3/uL Above high normal 10/05/2024 1.4 - 6.3 [facility] PLATELET COUNT 428.0 10*3/uL 10/05/2024 150 - 440 [facility] MCH 31.8 pg 10/05/2024 26 - 34 [facility] MCV 92.4 fL 10/05/2024 80 - [address] [facility] [address] 2.55 10*3/uL 10/05/2024 0.7 - 4.5 [facility] WHITE CELL COUNT 12.3 10*3/uL Above high normal 10/05/2024 3 .8 - 10.6 [facility] MONOCYTE % 9.8 % 10/05/2024 4 - [address] [facility] [address] 1.21 10*3/uL Above high normal 025 0.2 - 0.8 [facility] BASOPHILS % 0.7 % 10/05/2024 0 - [address] [facility] [address] 0.08 10*3/uL 10/05/2024 0 - 0.[address] [facility] [address] 0.09 10*3/uL 10/05/2024 0 - 0 .2 [facility] EOSINOPHIL % 0.6 % 10/05/2024 0 - 6 [facility] RED CELL COUNT 4.09 10*6/ L Below low normal 10/05/2024 4.4 - 5.9 [facility] IMMATURE GRANULOCYTE % 0.2 % 10/05/2024 0 - 0.6 [facility] NEUTROPHIL % 68.0 % 10/05/2024 40 - 70 [facility] AUTO NRBC % 0.0 % 10/05/2024 0 - 0 [facility] ABSOLUTE IMMATURE GRANULOCYTES 0.03 10*3/uL 10/05/2024 [facility] FENTANYL, URINE Negative 09/21/2024 - [facility] AMPHETAMINE/METHAMPHE T Negative 09/21/2024 - [facility] BENZODIAZEPINE, URINE Negative 09/21/2024 - [facility] OPIATES, URINE Negative 09/21/2024 - [facility] CANNABINOID Positive Abnormal 09/21/2024 - [facility] COCAINE METABOLITES URINE Negative 09/21/2024 - [facility] TRIGLYCERIDE 39.0 mg/dL 09/21/2024 [facility] CHOLESTEROL, TOTAL 88.0 mg/dL 09/21/2024 [facility] LDL CHOLESTEROL FRIEDWALD CALC 51.0 mg/dL 09/21/2024 [facility] CHOLESTEROL, HDL 29.0 mg/dL 09/21/2024 [facility] FASTING? 09/21/2024 [facility] GYCOHEMOGLOBIN A1C 4.8 % 09/21/2024 4.4 - 6.4 [facility] MAGNESIUM 1.8 mg/dL 09/21/2024 1.8 - 3 [facility] AST (SGOT) 19.0 U/L 09/21/2024 8 - 45 [facility] UREA NITROGEN 17.0 mg/dL 09/21/2024 8 - 24 [facility] BILIRUBIN, TOTAL 0.4 mg/dL 09/21/2024 0.1 - 1.2 [facility] ALBUMIN, AUTOMATED 4.0 g/dL 09/21/2024 3.8 - 5.3 [facility] POTASSIUM 4.2 mmol/L 09/21/2024 3.6 - 5.1 [facility] ALT (SGPT) 13.0 U/L 09/21/2024 - [facility] ANION GAP 4.0 mmol/L 09/21/2024 3 - 11 [facility] ALKALINE PHOSPHATASE 59.0 U/L 09/21/2024 39 - 113 [facility] CHLORIDE 111.0 mmol/L 09/21/2024 100 - 111 [facility] CREATININE 0.8 mg/dL 09/21/2024 0.6 - 1.2 [facility] BICARBONATE 26.0 mmol/L 09/21/2024 23 - 32 [facility] SODIUM 141.0 mmol/L 09/21/2024 137 - 144 [facility] GLOMERULAR FILTRATION RATE ML/MIN/1.73 SQ M.PREDICTED 121.0 mL/min/1.73m*2 09/21/2024 60 - [facility] CALCIUM, TOTAL 8.5 mg/dL 09/21/2024 8.4 - 10.2 [facility] GLUCOSE 93.0 mg/dL 09/21/2024 70 - 200 [facility] PROTEIN TOTAL 5.7 g/dL Below low normal 09/21/2024 6.2 - 8. 1 [facility] ETHANOL <10.0 mg/dL 09/21/[address] [facility] [address] 0.52 10*3/uL 09/21/2024 0.2 - 0.8 [facility] MCV 97.0 fL 09/21/2024 80 - 100 [facility] MPV 8.9 fL Below low normal 09/21/2024 9.4 - 12.4 [facility] MONOCYTE % 8.8 % 09/21/2024 4 - 12 [facility] MCHC 33.1 g/dL 09/21/2024 32 - 36 [facility] ABSOLUTE IMMATURE GRANULOCYTES 0.01 10*3/uL 09/21/2024 [facility] RED CELL COUNT 3.64 10*6/ L Below low normal 09/21/2024 4.4 - 5.9 [facility] IMMATURE GRANULOCYTE % 0.2 % 09/21/2024 0 - 0.[address] [facility] [address] 1.59 10*3/uL 09/21/2024 0.7 - 4.5 [facility] HEMOGLOBIN 11.7 g/dL Below low normal 09/21/2024 13 - 18 [facility] RBC DISTRIBUTION WIDTH 11.4 % Below low normal 09/21/2024 11.6 - 14.8 [facility] EOSINOPHIL % 2.5 % 09/21/2024 0 - 6 [facility] BASOPHILS % 1.0 % 09/21/2024 0 - [address] [facility] [address] 0.15 10*3/uL 09/21/2024 0 - 0.3 [facility] HEMATOCRIT 35.3 % Below low normal 09/21/2024 40 - 52 [facility] NEUTROPHIL % 60.6 % 09/21/2024 40 - 70 [facility] AUTO NRBC % 0.0 % 09/21/2024 0 - 0 [facility] LYMPHOCYTE % 26.9 % 09/21/2024 20 - [address] [facility] [address] 3.57 10*3/uL 09/21/2024 1.4 - 6.3 [facility] WHITE CELL COUNT 5.9 10*3/uL 09/21/2024 3.8 - 10.6 [facility] PLATELET COUNT 430.0 10*3/uL 09/21/2024 150 - 440 [facility] MCH 32.1 pg 09/21/2024 26 - [address] [facility] [address] 0.06 10*3/uL 09/21/2024 0 - 0 .2 [facility] BZE Ur Ql Negative 09/20/2024 - [facility] Cannabinoids Ur Ql Scn>50 ng/mL Positive Abnormal 09/20/2024 - [facility] Opiates Ur Ql Scn>300 ng/mL Negative 09/20/2024 - [facility] Amphetamines Ur Ql Positive Abnormal 09/20/2024 - [facility] fentaNYL+Norfentanyl Ur Ql Scn Negative 09/20/2024 - [facility] Benzodiaz Ur Ql Scn>200 ng/mL Negative 09/20/2024 - [facility] PCP Ur Ql Scn>25 ng/mL Negative 09/20/2024 - [facility] POC Glucose 113.0 mg/dL Above high normal 09/20/2024 65 - 99 [facility] Chloride SerPl-sCnc 99.0 mmol/L 09/19/2024 98 - 10 7 [facility] Bilirub SerPl-mCnc 0.6 mg/dL 09/19/2024 0.3 - 1 [facility] BUN/Creat SerPl 12.2 09/19/2024 12 - 20 [facility]_ [facility] BUN SerPl-mCnc 22.0 mg/dL Above high normal 09/19/2024 9 - 2 0 [facility] Glucose SerPl-mCnc 117.0 mg/dL 09/19/2024 70 - 199 [facility] CO2 SerPl-sCnc 24.0 mmol/L 09/19/2024 24 - 32 CT _[facility] AST SerPl-cCnc 27.0 unit/L 09/19/2024 5 - 40 CT _[facility] Anion Gap SerPl Calc-sCnc 15.0 Above high normal 09/19/2024 5 - 14 [facility] Calcium SerPl-mCnc 10.1 mg/dL 09/19/2024 8.4 - 10. 2 [facility] Albumin SerPl-mCnc 5.6 g/dL Above high normal 09/19/2024 3. 5 - 5 [facility] Creat SerPl-mCnc 1.8 mg/dL Above high normal 09/19/2024 0.7 - 1.3 [facility] eGFRcr SerPlBld CKD-EPI 2020 51.0 mL/min/1.73m2 Below low normal 09/19/2024 - [facility] Prot SerPl-mCnc 8.4 g/dL 09/19/2024 6.4 - 8.5 [facility]_ [facility] ALT SerPl-cCnc 17.0 unit/L 09/19/2024 7 - 52 CT _[facility] Sodium SerPl-sCnc 138.0 mmol/L 09/19/2024 135 - 14 5 [facility] ALP SerPl-cCnc 68.0 unit/L 09/19/2024 34 - 104 CT [facility] Potassium SerPl-sCnc 3.6 mmol/L 09/19/2024 3.5 - 5 .1 [facility] Ethanol SerPl-mCnc <10.0 mg/dL 09/19/2024 0 - 10 [facility] Troponin I SerPl HS-mCnc 3.0 ng/L 09/18/2024 0 - 20 [facility] RDW RBC Auto 12.5 % 09/18/2024 12.1 - 17.7 [facility] Monocytes NFr Bld Auto 9.2 % 09/18/2024 2 - 12 [facility] WBC # Bld Auto 10.7 K/mcL Above high normal 09/18/2024 4 - 1 0.5 [facility] Hct VFr Bld Auto 44.0 % 09/18/2024 40 - 54 CT _[facility] Monocytes # Bld Auto 1.0 K/mcL Above high normal 09/18/2024 0 - 0.8 [facility] Neutrophils NFr Bld Auto 65.6 % 09/18/2024 44 - 74 [facility] Basophils NFr Bld Auto 0.9 % 09/18/2024 0 - 2 [facility] RBC Auto 92.2 FL 09/18/2024 78 - 100 [facility] N Lymphocytes NFr Bld Auto 22.6 % 09/18/2024 20 - 48 [facility] Platelet # Bld Auto 580.0 K/mcL Above high normal 09/18/2024 150 - 450 [facility] Hgb Bld-mCnc 15.1 g/dL 09/18/2024 13.5 - 18 [facility] Eosinophil NFr Bld Auto 1.7 % 09/18/2024 0 - 6 [facility] MCHC RBC Auto-EntMCnc 34.5 g/dL 09/18/2024 32 - 36 [facility] MCH RBC Qn Auto 31.8 pcg 09/18/2024 25 - 33 [facility]_ [facility] Neutrophils # Bld Auto 7.0 K/mcL 09/18/2024 1.8 - 7.8 [facility] Basophils # Bld Auto 0.1 K/mcL 09/18/2024 0 - 0.2 [facility] Lymphocytes # Bld Auto 2.4 K/mcL 09/18/2024 1 - 3.2 [facility] PMV Bld Auto 7.4 FL 09/18/2024 7.4 - 11.4 [facility] Eosinophil # Bld Auto 0.2 K/mcL 09/18/2024 0 - 0.5 [facility] RBC # Bld Auto 4.77 M/mcL 09/18/2024 4.7 - 6 [facility]_ [facility] oxyCODONE Ur Ql Scn Negative 06/28/2024 - [facility] BZE Ur Ql Scn Negative 06/28/2024 - [facility] Opiates Ur Ql Scn Negative 06/28/2024 - C [facility] fentaNYL Ur Ql Negative 06/28/2024 - [facility] Benzodiaz Ur Ql Scn Negative 06/28/2024 - [facility] Cannabinoids Ur Ql Scn Positive Abnormal 06/28/2024 - [facility] Barbiturates Ur Ql Scn Negative 06/28/2024 - [facility] Amphet Ur Ql Scn Negative 06/28/2024 - CT _[facility] PCP Ur Ql Scn Positive Abnormal 06/28/2024 - [facility] Amphetamines Ur Ql Positive Abnormal 06/27/2024 - [facility] fentaNYL+Norfentanyl Ur Ql Scn Negative 06/27/2024 - [facility] Opiates Ur Ql Scn>300 ng/mL Negative 06/27/2024 - [facility] Cannabinoids Ur Ql Scn>50 ng/mL Positive Abnormal 06/27/2024 - [facility] Oxycodone Ur Ql Scn Negative 06/27/2024 - [facility] Methadone Ur Ql Scn>300 ng/mL Negative 06/27/2024 - [facility] PCP Ur Ql Scn>25 ng/mL Negative 06/27/2024 - [facility] BZE Ur Ql Negative 06/27/2024 - [facility] Barbiturates Ur Ql Scn>200 ng/mL Negative 06/27/2024 - [facility] Benzodiaz Ur Ql Scn>200 ng/mL Negative 06/27/2024 - [facility] Ethanol Ur-mCnc Negative 06/27/2024 - [facility] CT Buprenorphine Ur Ql Negative 06/27/2024 - [facility] Magnesium SerPl-mCnc 2.1 mg/dL Normal 11/16/2023 1.6 - 2. 7 [facility] Anion Gap Bld-sCnc 12.0 Normal 11/16/2023 7 - 17 [facility] Albumin/Glob SerPl 1.7 Ratio Normal 11/16/2023 1 - 3 [facility] ALT SerPl-cCnc 23.0 U/L Normal 11/16/2023 10 - 55 [facility] T Sodium SerPl-sCnc 141.0 mmol/L Normal 11/16/2023 136 - 14 5 [facility] Albumin SerPl-mCnc 4.5 g/dL Normal 11/16/2023 3.5 - 5 [facility] Bilirub SerPl-mCnc 0.5 mg/dL Normal 11/16/2023 0.2 - 1 [facility] ALP SerPl-cCnc 72.0 U/L Normal 11/16/2023 45 - 128 [facility] T Glucose SerPl-mCnc 96.0 mg/dL Normal 11/16/2023 65 - 99 [facility] BUN/Creat SerPl 16.0 Ratio Normal 11/16/2023 10 - 25 [facility] CCT BUN SerPl-mCnc 14.0 mg/dL Normal 11/16/2023 8 - [address] Calcium SerPl-mCnc 9.4 mg/dL Normal 11/16/2023 8.7 - 10.5 [facility] CO2 SerPl-sCnc 25.0 mmol/L Normal 11/16/2023 22 - 33 [facility] CCT Prot SerPl-mCnc 7.1 g/dL Normal 11/16/2023 6.3 - 8.[address] Chloride SerPl-sCnc 104.0 mmol/L Normal 11/16/2023 98 - 1 07 [facility] AST SerPl-cCnc 35.0 U/L Normal 11/16/2023 10 - 55 [facility] T Potassium SerPl-sCnc 4.1 mmol/L Normal 11/16/2023 3.4 - 5 .3 [facility] Globulin Ser Calc-mCnc 2.6 g/dL Normal 11/16/2023 1.5 - 3.9 [facility] GFR/BSA.pred SerPlBld QCI-PKP-QqBQlw >90.0 Normal 11/16/2023 59 - [facility] Creat SerPl-mCnc 0.9 mg/dL Normal 11/16/2023 0.5 - 1.3 HH CCT Imm Granulocytes/leuk NFr Bld Auto 0.2 % Normal 11/16/2023 [facility] Platelet num Bld Auto 498.0 Thou/uL Above high normal 2023 150 - 450 [facility] Lymphocytes/leuk NFr Bld Auto 22.5 % Normal 11/16/2023 [facility] Hgb Bld-mCnc 14.1 g/dL Normal 11/16/2023 13 - 17.7 [facility] Basophils num Bld Auto 0.08 Thou/uL Normal 11/16/2023 0 - 0.2 [facility] Basophils/leuk NFr Bld Auto 0.7 % Normal 11/16/2023 [facility] Neutrophils/leuk NFr Bld Auto 67.8 % Normal 11/16/2023 [facility] Imm Granulocytes num Bld Auto 0.02 Thou/uL Normal 11/16/2023 0 - 0.1 [facility] Monocytes/leuk NFr Bld Auto 7.9 % Normal 11/16/2023 [facility] Eosinophil num Bld Auto 0.11 Thou/uL Normal 11/16/2023 0 - 0.7 [facility] RDW RBC Auto-Rto 11.1 % Below low normal 11/16/2023 11.5 - 14.5 [facility] Eosinophil/leuk NFr Bld Auto 0.9 % Normal 11/16/2023 [facility] WBC num Bld Auto 12.1 Thou/uL Above high normal 11/16/2023 4 - 11 [facility] RBC num Bld Auto 4.61 Mil/uL Normal 11/16/2023 4.5 - 6.2 [facility] MCHC RBC Auto-mCnc 33.3 g/dL Normal 11/16/2023 30 - 36 [facility] PMV Bld Auto 8.5 fL Normal 11/16/2023 7.5 - 12.5 [facility] MCH RBC Qn Auto 30.6 pg Normal 11/16/2023 26 - [address] MCV RBC Auto 92.0 fL Normal 11/16/2023 80 - 100 [facility] Lymphocytes num Bld Auto 2.73 Thou/uL Normal 11/16/2023 1.5 - 4.5 [facility] Neutrophils num Bld Auto 8.23 Thou/uL Above high normal 11/16/2023 2 - 7.5 [facility] Hct VFr Bld Auto 42.4 % Normal 11/16/2023 39 - 54 HH CCT Monocytes num Bld Auto 0.96 Thou/uL Normal 11/16/2023 0.2 - 1.5 [facility] History of Medication Use Medication Directions Dispensed Refills Start Date End Date Stat docusate (COLACE) liquid 50 mg 50 mg, oral, Daily, First dose on 05/09/24 at 0746 05/09/2024 active cholecalciferol (CHOLECALCIFEROL) 25 MCG (1000 UT) tablet Take 2 tablets (2,000 Units total) by mouth daily. Do not start before June 26, 2021. 06/26/2021 active PANTOprazole (PROTONIX) 40 MG EC tablet Take 1 tablet (40 mg total) by mouth daily. 06/25/2021 active risperiDONE (RisperDAL) 0.5 MG tablet Take 1 tablet (0.5 mg total) by mouth 2 (two) times a day. 06/25/2021 active traZODone (DESYREL) 50 MG tablet Take 1 tablet (50 mg total) by mouth nightly as needed for sleep. 06/25/2021 active No information available. No information available. completed No known medications No known medications active No known medications No known medications active Allergies Allergen Reaction Severity Comment Documented Date Source Statu s OBSERVED NO KNOWN ALLERGIES AT OBSERVED NO KNOWN ALLERGIES AT CT_DOC OBSERVED NO KNOWN DRUG ALLERGIES AT OBSERVED NO KNOWN DRUG ALLERGIES AT [facility] Problems Problem Status Onset Date Problem Type Date of Resolution Source Substance use disorder active 2024-09-22 ProblemAct [facility] Schizoaffective disorder active 2024-09-21 ProblemAct [facility] Behavior safety risk active 2024-09-22 ProblemAct [facility] Auditory hallucinations active EncounterDiagnosisAct [facility] Methamphetamine use ([facility] V24, CMS/[facility] V28) active EncounterDiagnosisAct [facility] Tuberculosis screening active 2024-05-10 ProblemAct [facility] 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 ProblemAct [facility] Schizoaffective disorder active 2020-12-25 ProblemAct [facility] Alteration in patient safety due to identified suicide risk active 2020-12-31 ProblemAct [facility] Methamphetamine abuse active 2021-06-20 ProblemAct [facility] GERD (gastroesophageal reflux disease) active 2020-12-26 ProblemAct [facility] Schizoaffective disorder, bipolar type active 2021-06-20 ProblemAct [facility] Encounters Encounter Type Encounter Reason Primary Diagnosis Location Date Observation Schizoaffective disorder, unspecified Schizoaffective disorder, unspecified [facility] 10/05/2024 Emergency Auditory hallucinations Auditory hallucinations [facility] 10/05/2024 Emergency EDP hallucination EDP hallucination [facility] 10/05/2024 Emergency Schizoaffective disorder, unspecified Schizoaffective disorder, unspecified [facility] 09/21/2024 Observation Other stimulant abus e, uncomplicated Other stimulant abuse, uncomplicated [facility] 09/20/2024 Emergency MENTAL HEALTH ISSUES Auditory hallucinations [facility] 09/20/2024 Emergency FEET PAIN Pain in right foot [facility] 09/20/2024 Emergency Foot Pain Foot Pain [facility] 09/19/2024 Emergency Procedure and treatment not carried out due to patient leaving prior to being seen by health care provider Procedure and treatment not carried out due to patient leaving prior to being seen by health care provider [facility] 09/18/2024 Emergency Dificulty Breathing Dyspnea, unspecified [facility] 09/18/2024 Emergency Laceration without foreign body of other part of head, initial encounter Laceration without foreign body of other part of head, initial encounter [facility] 08/21/2024 Emergency Substance use Addiction Problem [facility] 08/20/2024 Emergency Hallucinations Hallucinations [facility] 07/10/2024 Emergency EVAL Homelessness unspecified [facility] 06/28/2024 Observation Other stimulant dependence, uncomplicated Other stimulant dependence, uncomplicated [facility] 06/25/2024 Emergency left ear pain Impacted cerumen , left ear [facility] 05/09/2024 Emergency Other psychoactive substance use, unspecified, uncomplicated Other psychoactive substance use, unspecified, uncomplicated [facility] 12/24/2023 Observation Hallucinations, unspecified Hallucinations, unspecified [facility] 11/16/2023 Emergency Alcohol abuse, uncomplicated [facility] 03/10/2022 Emergency [facility] 06/19/2021 Emergency Schizoaffective disorder, bipolar type [facility] 06/19/2021 Emergency Tobacco use [facility] 06/17/2021 Emergency Dorsalgia, unspecified [facility] 06/12/2021 Emergency Back Pain [facility] 04/16/2021 Emergency Depression, unspecified [facility] 12/24/2020 Care Team Organization Name Specialty Phone Email [facility] NO PCP Primary Care 09/21/2024 [facility] 09/21/2024 [facility] PROVIDER SYSTEM Primary Care 09/20/2024 [facility] PCP Entertainment Lawyer 06/26/2024 11/04/2024 [facility] 06/22/[address] [facility] 05/11/2024 [facility] 05/10/2024 [facility] 05/09/2024 [facility] NO PHYSICIAN Primary Care 05/09/2024 [facility] 01/26/2022 [facility] provided No Primary Care 01/06/2022 09/28/2023 [facility]. No provided Primary Care 12/24/2021 [facility] PCP,No Primary Care 06/20/2021 11/04/2024 [facility] PCP,No Primary Care 04/16/2021 09/28/2023 [facility] NO PCP Primary Care 04/16/2021 06/19/2021 [facility] NO PCP Primary Care 04/16/2021 04/16/2021
--- OUTSIDE RECORDS SUMMARY | 2024-11-11 04:21 | XMS_ITS | Encounter Summary ---
Author Organization [employer] [facility] Address [address] [place] [address] [address] [place] [address] Care Team Providers Care Technical Program Manager Name Role Phone Kelby Johnson RN Unavailable [phone] Marilyn Madrid Unavailable Reason for Visit * Reason Onset Date Comments appt 01/26/2023 Encounter Details Date Type Department Care Team ([facility] st Contact Info) Description 01/26/2023 Telephone [facility] ADULT DENTAL [address] [place] [address] Bryant Hoang, EDDA [address] [place] [address] appt Social History Tobacco Use Types Packs/Day Years Used Date Smoking Tobacco: Never Assessed Sex and Gender Information Value Date Recorded Sex Assigned at Male 12/09/2021 10:16 AM EDT Legal Sex Male 10:16 AM EDT Gender Identity Male 01/26/2023 1:38 PM EST Sexual Orientation Straight 01/26/2023 1: 38 PM EST documented as of this encounter Miscellaneous Notes * Telephone Encounter - Veronique Perez - 01/26/2023 12:44 PM EST Appt was wait listed in [facility] since 12/2021 and he is checking in on status of appt. Called [facility] dental. No answer. Wait listed appt in Epic. Informed patient message will be sent to the office for scheduling DR documented in this encounter Plan of Treatment Not on file documented as of this encounter Visit Diagnoses Not on filedocumented in this encounter Care Teams Technical Program Manager Relationship Specialty Start Date End Date Kelby Johnson, RN [address] [facility] [place] [address] Registered Nurse Family Medicine 09/22/24 Marilyn Madrid 09/23/24 documented as of this encounter
--- OUTSIDE RECORDS SUMMARY | 2024-11-11 04:21 | XMS_ITS | Encounter Summary ---
Author Organization [employer] [facility] Address [address] [place] [address] [address] [place] [address] Care Team Providers Care Television Installer Helper Name Role Phone Kelby Johnson RN Unavailable [phone] Marilyn Madrid Unavailable Reason for Visit * Reason Onset Date Comments New Patient 09/30/2022 Encounter Details Date Type Department Care Team (Late st Contact Info) Description 09/30/2022 Telephone [facility] MED[facility]INE [address] [place] [address] Cory Jackson MD [address] [place] [address] New Patient Social History Tobacco Use Types Packs/Day Years Used Date Smoking Tobacco: Never Assessed Sex and Gender Information Value Date Recorded Sex Assigned at Male 12/09/2021 10:16 AM EDT Legal Sex Male 10:16 AM EDT Gender Identity Male 01/26/2023 1:38 PM EST Sexual Orientation Straight 01/26/2023 1: 38 PM EST documented as of this encounter Miscellaneous Notes * Telephone Encounter - Cameron Coreas - 09/30/2022 1:03 PM EDT Tc to pt, to start the process of becoming a patient with facility and also to informed that we do not take insurance to please switch to [employer], no answer/left Vm to call back at [phone]. documented in this encounter Plan of Treatment Not on file documented as of this encounter Visit Diagnoses Not on filedocumented in this encounter Care Teams Television Installer Helper Relationship Specialty Start Date End Date Kelby Johnson, RN [address] [place] [address] [place] [address] Registered Nurse Family Medicine 09/22/24 Marilyn Madrid 09/23/24 documented as of this encounter
--- OUTSIDE RECORDS SUMMARY | 2024-11-11 04:21 | XMS_ITS | Encounter Summary ---
Author Organization [employer] [facility] Address [address] [facility] [address] [place] [address] Care Team Providers Care Meeting Facilitator Name Role Phone Kelby Johnson RN Unavailable [phone] Marilyn Madrid Unavailable Encounter Details Date Type Department Care Team (Late st Contact Info) Description 03/11/2023 Abstract [facility] [address] [place] [address] Luther Barnes DDS [address] [place] [address] Social History Tobacco Use Types Packs/Day Years Used Date Smoking Tobacco: Never Smokeless Tobacco: Never Sex and Gender Information Value Date Recorded Sex Assigned at Male 12/09/2021 10:16 AM EDT Legal Sex Male 10:16 AM EDT Gender Identity Male 01/26/2023 1:38 PM EST Sexual Orientation Straight 01/26/2023 1: 38 PM EST documented as of this encounter Plan of Treatment Not on file documented as of this encounter Visit Diagnoses Not on filedocumented in this encounter Care Teams Meeting Facilitator Relationship Specialty Start Date End Date Kelby Johnson RN [address] [place] [address] Registered Nurse Family Medicine 09/22/24 Marilyn Madrid 09/23/24 documented as of this encounter
--- OUTSIDE RECORDS SUMMARY | 2024-11-11 04:21 | XMS_ITS ---
Author Organization [employer] [facility] Address [address] [place] [address] [address] [place] [address] Care Team Providers Care New Patient Escort Name Role Phone Kelby Johnson RN Unavailable [phone] Marilyn Madrid Unavailable CM Complex Status:Outreach In Progress (Enrolling) Start date:09/22/2024 Enrollment reason:[facility] Overview Missing [facility] List- Patient was admitted to [facility] in [place] on 09/21/24 for schizoaffective d/o. Case Team Name Relationship Phone Kelby Johnson RN(Responsible Staff) Registered [facility] [place] [phone] Continued Care and Services Coordination
--- OUTSIDE RECORDS SUMMARY | 2024-11-11 04:21 | XMS_ITS | Clinical Summary ---
Author Organization [employer] Address [address] [place] [address] 7t [place] [address] Care Team Providers Care Managing Cognitive Engineer Name Role Phone Kelby Johnson RN Unavailable [phone] Marilyn Madrid Unavailable Allergies No known active allergies Medications hydrOXYzine pamoate (Vistaril) 50 MG capsule TAKE 2 CAPSULES BY MOUTH EVERY DAY AT BEDTIME 08/19/2022 Active cloNIDine (Catapres) 0.1 MG tablet Take 0.1 mg by mouth 2 times daily. 08/19/2022 Active sertraline (Zoloft) 100 MG tablet Take 100 mg by mouth at bedtime. 08/26/2022 Active QUEtiapine (SEROquel) 100 MG tablet Take 100 mg by mouth at bedtime. 08/26/2022 Active Active Problems Problem Noted Date Diagnosed Date Agitation 11/16/2023 Severe dental caries 10/08/2023 Necrosis of dental pulp 10/08/2023 Dental calculus 02/20/2023 Periodontal disease 02/20/2023 Methamphetamine abuse 06/20/2021 Schizoaffective disorder, bipolar type (CMS/HCC) 06/20/2021 Alteration in patient safety due to identified s uicide risk 12/31/2020 Overview (04/19/2024): [facility] [place] [address] MY SAFETY PLAN Name: Lester Eduardo Date: 12/31/2020 MR#: [id number] The one thing that is most important [...] 2. Name: Mom (Uyen Mascorro) 3. Place: [facility] 4. Place: Mall and grocery store Step 4 - People whom I can ask for help: 1. Name: Hannah 2. Name: Jordon 3. Name: Phone: Step 5 - Professionals or agencies I can contact during a crisis 1. Name: [facility] Phone: 2. Name: [employer] [facility] 3. Name: Phone: Additional Resources: [place] infoline 211, Suicide Prevention Lifeline 5-543-499-QCVT (1180), Text Hello to 846064, 148 Step 6 - Making the environment safe/access to guns: No access to guns This tool has been adapted from the [employer] Safety Plan [facility] Form 839309 R10-18 Pg 1 of 1 GERD (gastroesophageal reflux disease) 1 Encounters Date Type Department Care Team Description 10/12/2024 Patient Outreach [facility] MEDICINE [address] [place] [id number] Marilyn Madrid Care Coordination (C3 -[facility] Marilyn Madrid telephone call outreach) 09/23/2024 Patient Outreach [facility] MEDICINE [address] [place] [phone] Marilyn Madrid Care Coordination (C3 -[facility] Marilyn Madrid telephone call outreach) 09/23/2024 Patient Outreach [address] [address] Marilyn Madrid Care Coordination (C3 -[facility] Marilyn Madrid chart review) 09/23/2024 Patient Outreach [address] [address] Kelby Johnson, RN Care Coordination (C3- chart review) 09/22/2024 Patient Outreach [address], [place] from Last 3 Months Social History Tobacco Use Types Packs/Day Years Used Date Smoking Tobacco: Former Cigarettes Passive Smoke Exposure: Never Smokeless Tobacco: Never Tobacco Cessation:Counseling Given: No Alcohol Use Standard Drinks/Week Comments Defer 0 (1 standard drink = 0.6 oz pur e alcohol) Sex and Gender Information Value Date Recorded Sex Assigned at Male 12/09/2021 10:16 AM EDT Legal Sex Male 10:16 AM EDT Gender Identity Male 01/26/2023 1:38 PM EST Sexual Orientation Straight 01/26/2023 1: 38 PM EST Last Filed Vital Signs Vital Sign Reading Time Taken Comments Blood Pressure 124/74 04/19/2024 11:23 AM EDT Pulse 76 10/08/2023 3:35 PM EDT Temperature - - Respiratory Rate - - Oxygen Saturation - - Inhaled Oxygen Concentration - - Weight - - Height - - Body Mass Index - - Plan of Treatment Health Maintenance Due Date Last Done Comments Depression Screening 1991 HIV Screening 1991 SDOH Screening 1991 Disability Screening 1991 Alcohol/Substance Use Screening 2003 Family Planning (PISQ) 11/26/2006 HPV Vaccines (1 - Male 3-dos e series) 11/26/2006 Hepatitis C Screening 11/26/2009 Hepatitis B Vaccines (2 of 3 - 19+ 3-dose series) 07/06/2022 06/08/2022 Dental Oral Exam 08/21/2023 02/19/2023 Dental Prophylaxis 08/22/2023 02/20/2023 Dental X-Ray: Bitewings 02/21/2024 02/19/2023 COVID-19 Vaccine (1 - 2023-2 5 season) 2024 Influenza Vaccine (#1) 2024 9, 04/26/2018 Tobacco Screening 04/19/2025 04/19/2024 Dental X-Ray: Full Mouth 10/08/2026 024, 02/19/2023 DTaP/Tdap/Td Vaccines (3 - T d or Tdap) 06/08/2032 06/08/2022, 12/28/2018 Zoster Vaccines (1 of 2) 11/26/2041 RSV Patients and Patients Aged 60 years or older (1 - 1-dose 75+ series) 11/26/2066 Pneumococcal Vaccine: Pediatrics (0 to 5 Years) and At-Risk Patients (6 to 49) Years Aged Out 04/26/2018 No longer eligible b ased on patient's age to complete this topic HIB Vaccines Aged Out No longer eligi ble based on patient's age to complete this topic Hepatitis A Vaccines Aged Out No long er eligible based on patient's age to complete this topic IPV Vaccines Aged Out No longer eligi ble based on patient's age to complete this topic Meningococcal B Vaccine Aged Out No l onger eligible based on patient's age to complete this topic Meningococcal Vaccine Aged Out No richard jeanine eligible based on patient's age to complete this topic RSV under 20 months Aged Out No longe r eligible based on patient's age to complete this topic Rotavirus Vaccines Aged Out No longer eligible based on patient's age to complete this topic Procedures Procedure Name Priority Date/Time Associated Diagnosis Comments PANORAMIC RADIOGRAPHIC IMAGE Routine 10/08/2023 3:30 PM EDT PROPHYLAXIS - ADULT Routine 02/20/2023 8 :00 AM EST Dental calculus Periodontal disease INTRAORAL - COMPLETE SERIES OF RADIOGRAPHIC IMAGES Routine 02/19/2023 9:30 AM EST COMPREHENSIVE ORAL EVALUATION - NEW OR ESTABLISHED PATIENT Routine 02/19/2023 9:30 AM EST from Last 3 Months or Most Recently Relevant to Health Maintenance [facility] AD[place] Care Teams Managing Cognitive Engineer Relationship Specialty Start Date End Date Kelby Johnson RN [address] [place] [phone] Registered Nurse Family Medicine 09/22/24 Marilyn Madrid 09/23/24
--- OUTSIDE RECORDS SUMMARY | 2024-11-11 04:22 | XMS_ITS ---
Author Organization [employer] [facility] Address [address] [place] [address] 7 [place] [address] Care Team Providers Care Ccie Name Role Phone Kelby Johnson RN Unavailable [phone] Marilyn Madrid Unavailable CHW Complex Status:Outreach In Progress (Enrolling) Start date:09/23/2024 Enrollment reason:[facility] Overview Missing [facility] List- Patient was admitted to [facility] in [place] on 09/21/24 for schizoaffective d/o. Case Team Name Relationship Phone Marilyn Madrid(Responsible Staff) Continued Care and Services Coordination
--- OUTSIDE RECORDS SUMMARY | 2024-11-11 04:22 | XMS_ITS | Clinical Summary ---
Author Organization [facility] Address [address] [place] [address] Care Team Providers Care Inspector Toys Name Role Phone System, Provider Not In Primary Care Provider Un available Allergies No known active allergies Medications * [...] needed for sleep. 10 tablet 06/25/2021 Active ibuprofen (MOTRIN) 600 MG tablet Take 1 tablet (600 mg total) by mouth 3 (three) times a day as needed for mild pain (pain). 20 tablet 10/06/2024 Active lidocaine (LIDODERM) 5 % patch Place 1 patch on the skin daily. Apply patch and leave on for 12 hours then remove. Patch may remain on skin for 12 hours per day. 30 patch 10/06/2024 Active cyclobenzaprine (FLEXERIL) 10 MG tablet Take 0.5 tablets (5 mg total) by mouth 3 (three) times a day as needed for muscle spasms. 9 tablet 10/06/2024 Active hydrOXYzine HCl (ATARAX) 25 MG tablet Take 1 tablet (25 mg total) by mouth 4 times daily (every 6 hours) as needed for anxiety. 30 tablet 10/06/2024 Active melatonin 3 MG Tab tablet Take 1 tablet (3 mg total) by mouth nightly as needed (difficulty sleeping). 7 tablet 10/06/2024 Active nicotine polacrilex (NICORETTE) 2 MG gum Apply 1 each (2 mg total) to the mouth or throat every 2 (two) hours as needed for smoking cessation. 100 tablet 10/06/2024 Active lidocaine (LIDODERM) 5 % patch Place 1 patch on the skin once. Apply patch and leave on for 12 hours then remove. Patch may remain on skin for 12 hours per day. 30 patch 10/06/2024 Active cyclobenzaprine (FLEXERIL) 5 MG tablet Take 1 tablet (5 mg total) by mouth 3 times daily (every 8 hours) as needed for muscle spasms. 12 tablet 10/06/2024 Active lidocaine (LIDODERM) 5 % patch Place 1 patch on the skin once. Apply patch and leave on for 12 hours then remove. Patch may remain on skin for 12 hours per day. Do not start before October 07, 2024. 30 patch 10/07/2024 Active Active Problems Problem Noted Date Diagnosed Date Depression 09/20/2024 Agitation 11/16/2023 Methamphetamine abuse 06/20/2021 Schizoaffective disorder, bipolar type 2 Alteration in patient safety due to identified s uicide risk 12/31/2020 Overview (12/31/2020): Images from the original note were not included. [facility]ACQUELIN [facility]OTE [address] [place] [address] MY SAFETY PLAN Name: Lester Eduardo Date: 12/31/2020 MR#: [id number] The one thing that is most important [...] 2. Name: Mom (Uyen Mascorro) 3. Place: [facility] 4. Place: Mall and grocery store Step 4 - People whom I can ask for help: 1. Name: Hannah 2. Name: Jordon 3. Name: Phone: Step 5 - Professionals or agencies I can contact during a crisis 1. Name: [facility] Phone: 2. Name: [employer] [facility] 3. Name: Phone: Additional Resources: [place] infoline 211, Suicide Prevention Lifeline 0-146-448-JQIO (6604), Text Hello to 627305, 743 Step 6 - Making the environment safe/access to guns: No access to guns This tool has been adapted from the Zero Suicide [employer] Safety Plan [facility] Form 781958 R10-18 Pg 1 of 1 GERD (gastroesophageal reflux disease) 1 Schizoaffective disorder 12/25/2020 Encounters * This document contains information received from the source organization and may not represent a complete record from that organization. Date Type Department Care Team Description 10/05/2024 8:54 PM EDT - 10/06/2024 1:21 PM EDT Hospital Encounter [facility] Emergency Department [address] [place] [phone] Kalia Arredondo MD Schizoaffective disorder (HCC) (Primary Dx); Auditory hallucination; Anxiety; Schizoaffective disorder, subchronic condition (HCC); Anxiety disorder of childhood or adolescence; Cigarette smoker; Hyperkinetic syndrome Discharge Disposition: Home or Self Care 10/05/2024 Travel 09/20/2024 9:05 AM EDT - 09/20/2024 6:18 PM EDT Hospital Encounter [facility] Emergency Department [address] [place] [address] Lissy Galvan MD Methamphetamine abuse (HCC) (Primary Dx) Discharge Disposition: Home or Self Care 09/20/2024 Travel 09/19/2024 9:52 PM EDT - 09/19/2024 10:49 PM EDT [facility] Emergency Department [address] [place] [address] Discharge Disposition: Home or Self Care 09/18/2024 10:43 PM EDT - 09/19/2024 7:11 AM EDT [facility] Emergency Department [address] [place] [address], [place] [address] Eloped from emergency department (Primary Dx) Discharge Disposition: Home or Self Care 08/21/2024 12:13 PM EDT - 08/21/2024 12:58 PM EDT [facility] Emergency Department [address] [place] [phone] Superficial laceration of face (Primary Dx) Discharge Disposition: Home or Self Care 08/21/2024 Travel from Last 3 Months Immunizations Immunization [...] 12:05 PM EST Sexual Orientation Heterosexual (straight) 04/18 12:05 PM EST Last Filed Vital Signs Vital Sign Reading Time Taken Comments Blood Pressure 99/55 10/06/2024 10:29 AM EDT Pulse 80 10/06/2024 10:29 AM EDT Temperature 35.8 C (96.5 F) 10/06/2024 6:33 AM EDT Respiratory Rate 18 10/06/2024 10:29 AM EDT Oxygen Saturation 97% 10/06/2024 10:29 AM EDT Inhaled Oxygen Concentration - - Weight [...] - 19+ 3-dose series) 11/26/2010 Pneumococcal Vaccine: Pediat darrian (0-5 Years) and At-Risk Patients (6 to 49 Years) (1 of 2 - PCV) 11/26/2010 Influenza Vaccine 09/09/2024 12/31/2020, 12/31/2020 COVID-19 Vaccine (1 - season) 2024 HPV Vaccines (No Doses Required) Completed Procedures Procedure Name Priority Date/Time Associated Diagnosis Comments PHENCYCLIDINE (PCP) SCREEN, URINE STAT 09/20/2024 2:11 PM EDT OPIATE SCREEN, URINE STAT 09/20/2024 2:11 PM EDT FENTANYL SCREEN, URINE FNTYL5 STAT 09/20/2024 2:11 PM EDT COCAINE SCREEN, URINE STAT 09/20/2024 2:11 PM EDT CANNABINOID SCREEN, URINE STAT 09/20/2024 2:11 PM EDT BENZODIAZEPINE SCREEN, URINE STAT 09/20/2024 2:11 PM EDT AMPHETAMINE SCREEN, URINE STAT 09/20/2024 2:11 PM EDT POCT GLUCOSE, FINGERSTICK (CHARGE) Routine 09/20/2024 11:34 AM EDT from Last 3 Months Results * Fentanyl Screen, Urine (09/20/2024 2:11 PM EDT) Fentanyl Screen, Urine Negative Negative <5 ng/mL 09/20/2024 3:14 PM EDT [facility] Comment: * FOR MEDICAL PURPOSES ONLY * Confirmation upon request. Urine Urine specimen obtained by clean catch procedure / Unknown 09/20/2024 2:11 PM EDT 09/20/2024 2:32 PM EDT us Eleazar Trinh MD URINE ORDERABLES Final Result Performing Organization Address [facility] [address]/[facility] [place] [address], [place] [address] * (ABNORMAL) Cannabinoid Screen, Urine (09/20/2024 2:11 PM EDT) Cannabinoid Screen, Urine Positive( A) Negative <50 ng/mL 09/20/2024 3:14 PM EDT [facility] Comment: * FOR MEDICAL PURPOSES ONLY * Confirmation upon request. Urine Urine specimen / Unknown 09/20/2024 2:11 PM EDT 09/20/2024 2:32 PM EDT us Eleazar Trinh MD URINE ORDERABLES [place] [address], [place] [address] * Phencyclidine (PCP) Screen, Urine (09/20/2024 2:11 PM EDT) PCP Screen, Urine Negative Negative <25 ng/mL 09/20/2024 3:14 PM EDT [facility] Comment:* FOR MEDICAL PURPOS ES ONLY * Urine Urine specimen / Unknown 09/20/2024 2:11 PM EDT 09/20/2024 2:32 PM EDT us Eleazar Trinh MD URINE ORDERABLES Final Result Performing Organization Address [facility] [address]/[facility] Co de Phone Number [address] [address], [address] [address] * Opiate Screen, Urine (09/20/2024 2:11 PM EDT) Opiate, Urine Negative Negative <300 ng/mL 09/20/2024 3:14 PM EDT [facility] Comment:* FOR MEDICAL PURPOS ES ONLY * Urine Urine specimen / Unknown 09/20/2024 2:11 PM EDT 09/20/2024 2:32 PM EDT us Eleazar Trinh MD URINE ORDERABLES Final Result Performing Organization Address [facility] Co de Phone Number [address] [address], [address] [address] * Cocaine Screen, Urine (09/20/2024 2:11 PM EDT) Cocaine Screen, Urine Negative Negative <300 ng/mL 09/20/2024 3:14 PM EDT [facility] Comment:* FOR MEDICAL PURPOS ES ONLY * Urine Urine specimen / Unknown 09/20/2024 2:11 PM EDT 09/20/2024 2:32 PM EDT us Eleazar Trinh MD URINE ORDERABLES Final Result Performing Organization Address [facility] [address]/[facility] Co de Phone Number [address] [address], [address] [address] * Benzodiazepine Screen, Urine (09/20/2024 2:11 PM EDT) Benzodiazepine Screen, Urine Negative Negative <200 ng/mL 09/20/2024 3:14 PM EDT [facility] Comment:* FOR MEDICAL PURPOS ES ONLY * Urine Urine specimen / Unknown 09/20/2024 2:11 PM EDT 09/20/2024 2:32 PM EDT us Eleazar Trinh MD URINE ORDERABLES Final Result Performing Organization Address [facility] [address]/ZIP Co de Phone Number [address] [address], [address] [address] * (ABNORMAL) Amphetamine Screen, Urine (09/20/2024 2:11 PM EDT) Amphetamine Screen, Urine Positive( A) Negative <1000 ng/mL 09/20/2024 3:14 PM EDT [facility] Comment: * FOR MEDICAL PURPOSES ONLY * Confirmation upon request. Urine Urine specimen / Unknown 09/20/2024 2:11 PM EDT 09/20/2024 2:32 PM EDT Eleazar Trinh MD URINE ORDERABLES Final Result Performing Organization Address [facility] [address]/ZIP Co de Phone Number [address] [address], [address] [address] * (ABNORMAL) POCT Glucose, Fingerstick (09/20/2024 11:34 AM EDT) POC Glucose 113(H) 65 - 99 mg/dL 09/20/2024 11:35 AM EDT Blood specimen / Unknown 09/20/2024 11:34 AM EDT 09/20/2024 11:35 AM EDT Lissy Galvan MD POINT OF CARE TEST ORDERAB LES Final Result [facility] See Below from Last 3 Months Insurance [facility] Advance Directives * Full Code (Latest Code Status on File) Date Activated Date Inactivated Comments 10/06/2024 3:58 AM * Full Code Date Activated Date Inactivated Comments 09/20/2024 3:03 PM 10/05/2024 8:43 PM * Full Code Date Activated Date Inactivated Comments 06/25/2024 10:01 PM 07/10/2024 6:28 AM * Full Code Date Activated Date Inactivated Comments 11/16/2023 7:24 AM 12/24/2023 10:53 PM * Full Code Date Activated Date Inactivated Comments 06/20/2021 12:53 PM 03/10/2022 2:17 AM Healthcare Agents on File Name Relationship Healthcare Agent Relationshi p Communication Hannah Jiminez Other 1. Health Care Representa ti Care Teams Inspector Toys Relationship Specialty Start Date End Date System, Provider Not In PCP - General 09/19/24
--- OUTSIDE RECORDS SUMMARY | 2024-11-11 04:23 | XMS_ITS | Encounter Summary ---
Author Organization [facility] Address [address] [place] [address] [address]t [place] [address] Care Team Providers Care Geospatial Program Management Officer Name Role Phone Kelby Johnson RN Unavailable [phone] Marilyn Madrid Unavailable Reason for Visit * Reason Onset Date Comments unable to post insurance 04/19/2024 Encounter Details Date Type Department Care Team (Late st Contact Info) Description 04/19/2024 Telephone [facility] ADULT DENTAL [address] [place] [address] Maddison Esposito DDS [address] [place] [address] unable to post insurance Social History Tobacco Use Types Packs/Day Years Used Date Smoking Tobacco: Former Cigarettes Passive Smoke Exposure: Never Smokeless Tobacco: Never Alcohol Use Standard Drinks/Week Comments Defer 0 [...] * Telephone Encounter - Veronique Perez - 04/19/2024 9:34 AM EDT Patient is coming in for emergency visit today at 11:30. Unable to post insurance portal not running on PAR side documented in this encounter Plan of Treatment Not on file documented as of this encounter Visit Diagnoses Not on filedocumented in this encounter Care Teams Geospatial Program Management Officer Relationship Specialty Start Date End Date Kelby Johnson RN [address] [place] [address] [place] [id number] Registered Nurse Family Medicine 09/22/24 Marilyn Madrid 09/23/24 documented as of this encounter
[2024-11-11 04:27] VITALS: BP 131/92; PULSE 67; RESP 18; O2SAT 98
--- NOTE | 2024-11-11 04:37 | ED.BACK ---
HPI - Back Pain/Injury General Chief Complaint: Back Pain/Injury Stated Complaint: lower back pain Time Seen by Provider: 11/11/24 04:22 Source: patient Mode of arrival: ambulatory Limitations: no limitations History of Present Illness ED Provider: Dr. Aisha Wren HPI Narrative: Patient comes to the emergency room complaining of bilateral back pain intermittently for several months. Patient states that sometimes he does have a bit of back pain, symptoms dysuria but not recently. Patient denies any trauma, denies fever chills. Denies recent hematuria or dysuria. Patient denies midline pain, states it is mostly on bilateral aspects of the back. Denies urinary/fecal incontinence/retention Related Data Previous Rx's ?Medication ?Instructions ?Recorded doxycycline hyclate 100 mg capsule 100 mg PO BID #14 caps 04/14/21 doxycycline hyclate 100 mg capsule 100 mg PO BID 10 days #20 caps 12/17/22 metronidazole 500 mg tablet 500 mg PO BID 7 days #14 tabs 12/17/22 valacyclovir 1 gram tablet 1,000 mg PO BID 5 days #10 tabs 12/17/22 (Valtrex) acetaminophen 500 mg capsule 1,000 mg (2 x 500 mg) PO .q8 PRN 08/31/24 fever or pain #30 caps amoxicillin 875 mg-potassium 1 tab PO BID #10 tabs 08/31/24 clavulanate 125 mg tablet ibuprofen 600 mg tablet 600 mg PO Q8H PRN fever or pain 08/31/24 #30 tabs cyclobenzaprine 10 mg tablet 10 mg PO BID PRN muscle spasm #7 11/11/24 tabs Allergies Allergy/AdvReac Type Severity Reaction Status Date / Time No Known Allergies (No Known Allergy Verified 11/11/24 02:25 Allergies*) Review of Systems Review of Systems: Constitutional : No Weight loss, No Fever, No Chills, No Night Sweats, No Fatigue, No Malaise ENT/Mouth : No Hearing loss, No Ear Pain, No Nasal Congestion, No Sinus Pain, No Hoarseness, No sore throat, No Rhinorrhea, No Swallowing Difficulty Eyes: No Eye Pain, No Swelling, No Redness, No Foreign Body, No Discharge, No Vision Changes Cardiovascular : No Chest Pain, No SOB, No Dyspnea on Exertion, No Orthopnea, No Edema, No Palpitations Respiratory : No Cough, No Sputum, No Wheezing, No Smoke Exposure, No Dyspnea Gastrointestinal : No Nausea, No Vomiting, No Diarrhea, No Constipation, No abdominal Pain, No Hematochezia, No Melena Genitourinary : no irregular bleeding, No Dysuria, No Urinary Frequency, No Hematuria, No Urinary Incontinence, No Urgency, No Flank Pain, No Urinary Flow Changes, No Hesitancy Musculoskeletal : Complaining of intermittent bilateral middle back pain, worse with movement. No joint pain, No Myalgias, No Joint Swelling Skin : No Skin Lesions, No rash Neuro : No Weakness, No Numbness, No Paresthesias, No Loss of Consciousness, No Dizziness, No Headache Psych : No Anxiety/Panic, No Depression, No SI/HI/AH/VH, No Social Issues, Heme/Lymph: No Bruising, No Bleeding,No Lymphadenopathy Endocrine : No Polyuria, No Polydipsia, No Temperature Intolerance [facility] Social History Social History Advance Directives: No Physical Exam Exam: Exam: Appearance: Alert. Oriented X3. No acute distress. Eyes: Pupils equal, round and reactive to light. ENT: Pharynx normal. Neck: Normal inspection. Neck supple. No lymph nodes noted. No crepitus CVS: Normal heart rate and rhythm. Pulses normal. Normal S1 and S2 Respiratory: No respiratory distress. Breath sounds normal. No Wheezing. No rales Abdomen: Soft and nontender. No rigidity. No distention. Back: Pain to palpation over the bilateral aspects of the back, no CVA tenderness, no cervical/thoracic/lumbar spine tenderness. Normal flexion and extension of the back. Skin: Skin warm and dry. Normal skin color. Normal skin turgor. Extremities: No lower extremity edema. No Lacerations. No Rash Neuro: Oriented X 3. No motor deficit. No sensory deficit. Moving all extremities. No slurred speech. CN 2 through 12 grossly intact Psych: calm, cooperative, normal affect Vital Signs: Vital Signs: Last Vital Signs Temp 97.9 F 11/11/24 02:24 Pulse 79 11/11/24 06:23 Resp 18 11/11/24 06:23 BP 144/97 H 11/11/24 06:23 Pulse Ox 97 11/11/24 06:23 O2 Del Method Room Air 10/03/25 06:23 BMI result Body Mass Index 24.4 Course Course Course Narrative: Patient complaining of intermittent back pain, occasional hematuria dysuria. Never has passed kidney stones. Denies recent UTI symptoms, denies recent trauma Medical Decision Making Medical Decision Making MDM Narrative: Patient complaining of musculoskeletal pain. Imaging is not indicated We tried to obtain a UA, patient declined UA Discharge Plan Discharge Clinical Impression: Musculoskeletal back pain Patient Disposition: Home, Self-Care Instructions: Back Pain (ED) Additional Instructions: Please follow-up with your primary care physician tomorrow. If you have any worsening or new symptoms, please return to the emergency room or call 911 Prescriptions: New cyclobenzaprine 10 mg tablet 10 mg PO BID PRN (Reason: muscle spasm) Qty: 7 0RF No Action doxycycline hyclate 100 mg capsule 100 mg PO BID Qty: 14 0RF doxycycline hyclate 100 mg capsule 100 mg PO BID 10 Days Qty: 20 0RF metronidazole 500 mg tablet 500 mg PO BID 7 Days Qty: 14 0RF valacyclovir [Valtrex] 1 gram tablet 1,000 mg PO BID 5 Days Qty: 10 0RF amoxicillin-pot clavulanate 875-125 mg tablet 1 tab PO BID Qty: 10 0RF ibuprofen 600 mg tablet 600 mg PO Q8H PRN (Reason: fever or pain) Qty: 30 0RF acetaminophen 500 mg capsule 1,000 mg PO .q8 PRN (Reason: fever or pain) Qty: 30 0RF Print Language: [place]
[2024-11-11 06:23] VITALS: BP 144/97; PULSE 79; RESP 18; O2SAT 97
[2024-11-11 07:13] VITALS: BP 144/97; PULSE 79; RESP 18; TEMP 36.7; O2SAT 97
[2024-11-11 07:25] LABS: Appearance Urine Clear; Glucose Urine UA Negative (Negative); PH 7.0 (5.0-9.0); Specific Gravity - Urine 1.010 (1.005-1.025); UMIC TRIGGER UACC YES
== END 2024-11-11 07:21 | disposition home or self-care (01) ==
PROVIDERS: Emergency Provider Emergency Medicine
DX: M54.50 Low back pain, unspecified (principal); R30.0 Dysuria
CPT/HCPCS: 81001; 99283; 99284

== ENCOUNTER 2024-12-01 00:17 | Emergency (ER) | payer MEDICAID, SELFPAY ==
[2024-12-01 00:21] VITALS: BP 145/85; PULSE 111; RESP 20; TEMP 36.6; O2SAT 99; BMI 24.1
--- OUTSIDE RECORDS SUMMARY | 2024-12-01 00:41 | XMS_ITS | Clinical Summary ---
Author Organization [employer] Address [address] [place] [address] [address] [place] [address] Care Team Providers Care Director Of Elementary Education Name Role Phone Kelby Johnson RN Unavailable [phone] Marilyn Madrid Unavailable Allergies No known [...] identified s uicide risk 12/31/2020 Overview (04/19/2024): [employer] [facility] [place] [address] MY SAFETY PLAN Name: Lester Eduardo Date: 12/31/2020 MR#: [id number] The one thing that is most important [...] can contact during a crisis 1. Name: [facility] Phone: 2. Name: [facility] 3. Name: Phone: Additional Resources: [place] infoline 211, Suicide Prevention Lifeline 2-740-370-LGBX (9520), Text Hello to 124289, 778 Step 6 - Making the environment safe/access to guns: No access to guns This tool has been adapted from the [employer] Safety Plan [facility] Form 614332 R10-18 Pg 1 of 1 GERD (gastroesophageal reflux disease) 1 Encounters Date Type Department Care Team Description 11/29/2024 Patient Outreach [facility] MEDIC[facility] [address] [place] [id number] Marilyn Madrid Care Coordination (C3 -[facility] Marilyn Madrid telephone call outreach) 11/22/2024 Patient Outreach [facility] [address] [place] [phone] Madrid, Marilyn Care Coordination (C3 [facility] Marilyn Madrid telephone call outreach) 11/15/2024 Patient Outreach [address] [address] Madrid, Marilyn Care Coordination (C3 [facility] Marilyn Madrid telephone call outreach) 11/11/2024 Orders Only GENERIC EXTERNAL DATA DEPARTMENT Provider, Generic External Data 10/12/2024 Patient Outreach [address] [address] Madrid, Marilyn Care Coordination (C3 CM-W Marilyn Madrid telephone call outreach) 09/23/2024 Patient Outreach [address] [address] Madrid, Marilyn Care Coordination (C3 CM-[facility] Marilyn Madrid telephone call outreach) 09/23/2024 Patient Outreach [address] [address] Marilyn Madrid Care Coordination (C3 CM-[facility] Marilyn Madrid chart review) 09/23/2024 Patient Outreach [address] [address] Kelby Johnson, RN Care Coordination (C3- chart review) 09/22/2024 Patient Outreach [address], [place] from Last 3 Months [...] Procedure Name Priority Date/Time Associated Diagnosis Comments URINALYSIS, COMPLETE, WITH REFLEX TO CULTURE Routine 11/11/2024 7:17 AM EDT PANORAMIC RADIOGRAPHIC IMAGE Routine 10/08/2023 3:30 PM EDT PROPHYLAXIS - ADULT Routine 02/20/2023 8 :00 AM EST Dental calculus Periodontal disease INTRAORAL - COMPLETE SERIES OF RADIOGRAPHIC IMAGES Routine 02/19/2023 9:30 AM EST COMPREHENSIVE ORAL EVALUATION - NEW OR ESTABLISHED PATIENT Routine 02/19/2023 9:30 AM EST from Last 3 Months or Most Recently Relevant to Health Maintenance Results * (ABNORMAL) Urinalysis, Complete, with Reflex to Culture (11/11/2024 7:17 AM EDT) Color Urine Yellow [facility] Appearance Urine Clear [facility] PH 7.0 5.0 - 9.0 [facility] Glucose Urine UA Negative Negative mg/dL [facility] Urine Blood Small (1+)(A) Negative [facility] Specific [place] - Urine 1.010 1.005 - 1.025 [facility] Urine Protein Negative Neg-Trace mg/dL [facility] Urine Ketones Negative Negative mg/dL [facility] Nitrite Urine Negative Negative [facility] Leukocyte Esterase Urine Negative Negative [facility] RBC Urine 6-10(A) 0 - 2 /HPF [facility] Urine WBC 0-5 0 - 5 /HPF [facility] Urine Squamous Epithelial Cell 0-2 0 - 2 /HPF [facility] Urine Bacteria None Seen None Seen [facility] Hyaline Casts, Urine 0-2 0 - 2 /LPF [facility] 11/11/2024 7:17 AM EDT 11/11/2024 7:21 AM EDT Narrative [facility] - 11/11/2024 7:33 AM EDT [id number], Clean Catch us Generic External Data Provider LAB URINE ORDERAB LES Final Result [facility] [address] [place] [address] [phone] from Last 3 Months Insurance [facility] C3 D[facility]AL-[facility] MEDICA[facility] STAND ADULT Care Teams Director Of Elementary Education Relationship Specialty Start Date End Date Kelby Johnson, RN [address] [place] [address] Registered Nurse Family Medicine 09/22/24 Marilyn Madrid 09/23/24
--- OUTSIDE RECORDS SUMMARY | 2024-12-01 00:41 | XMS_ITS ---
Author Organization [employer] [facility] Address [address] [place] [address] 7 [place] [address] Care Team Providers Care Freight Broker Agent Name Role Phone Kelby Johnson RN Unavailable [phone] Marilyn Madrid Unavailable [facility] Complex Status:Outreach In Progress (Enrolling) Start date:09/23/2024 Enrollment reason:[facility] Overview Missing [facility] List- Patient was admitted to [facility] in [place] on 09/21/24 for schizoaffective d/o. Case Team Name Relationship Phone Marilyn Madrid(Responsible Staff) [phone] Continued Care and Services Coordination
--- OUTSIDE RECORDS SUMMARY | 2024-12-01 00:41 | XMS_ITS | Encounter Summary ---
Author Organization [employer] [facility] Address [address] [place] [address] Care Team Providers Care Blood Bank Manager Name Role Phone Kelby Johnson RN Unavailable [phone] Marilyn Madrid Unavailable Encounter Details Date Type Department Care Team (Late st Contact Info) Description 03/11/2023 Abstract [facility] ADULT DENTAL [address] [place] [address] Luther Barnes DDS [address] [place] [address] Social History Tobacco Use Types Packs/Day Years [...] on filedocumented in this encounter Care Teams Blood Bank Manager Relationship Specialty Start Date End Date Kelby Johnson RN [address] [place] [address] Registered Nurse Family Medicine 09/22/24 Marilyn Madrid 09/23/24 documented as of this encounter
--- OUTSIDE RECORDS SUMMARY | 2024-12-01 00:41 | XMS_ITS | Encounter Summary ---
Author Organization [facility] Address [address] [place] [address] [address] [place] [address] Care Team Providers Care Exhibits Coordinator Name Role Phone Kelby Johnson RN Unavailable [phone] Marilyn Madrid Unavailable Reason for Visit * Reason Onset Date Comments unable to post insurance 04/19/2024 Encounter Details Date Type Department Care Team (Late st Contact Info) Description 04/19/2024 Telephone [facility] ADULT D[facility]AL [address] [place] [address] Maddison Esposito DDS [address] [place] [address] unable to post insurance Social History Tobacco [...] on filedocumented in this encounter Care Teams Exhibits Coordinator Relationship Specialty Start Date End Date Kelby Johnson RN [address] [place] [address] [place] [address] Registered Nurse Family Medicine 09/22/24 Marilyn Madrid 09/23/24 documented as of this encounter
--- OUTSIDE RECORDS SUMMARY | 2024-12-01 00:41 | XMS_ITS | Encounter Summary ---
Author Organization [employer] [facility] Address [address] [place] [address] [address] [place] [address] Care Team Providers Care Map Clerk Name Role Phone Kelby Johnson RN Unavailable [phone] Marilyn Madrid Unavailable Reason for Visit * Reason Onset Date Comments appt 01/26/2023 Encounter Details Date Type Department Care Team ([facility] st Contact Info) Description 01/26/2023 Telephone [facility] ADULT DENTAL [address] [place] [address] Bryant Hoang, EDDA [address] [place] [address] appt Social History Tobacco Use Types Packs/Day [...] PM EST Appt was wait listed in [employer] since 12/2021 and he is checking in on status of appt. Called [facility] dental. No answer. Wait listed appt in Epic. Informed patient message will be sent to the office for scheduling DR documented in this encounter Plan of Treatment Not on file documented as of this encounter Visit Diagnoses Not on filedocumented in this encounter Care Teams Map Clerk Relationship Specialty Start Date End Date Kelby Johnson, RN [address] [facility] [address] Registered Nurse Family Medicine 09/22/24 Marilyn Madrid 09/23/24 documented as of this encounter
--- OUTSIDE RECORDS SUMMARY | 2024-12-01 00:41 | XMS_ITS | Clinical Summary ---
Author Organization [facility] Address [address] [place] [address] Care Team Providers Care Engineer Process Name Role Phone Pcp, No Primary Care Provider Unavailabl e Allergies No known active allergies Medications * This document contains information received from the source organization and may not represent a complete record from that organization. traZODone (DESYREL) 50 MG tabletIndication s:Schizoaffectiv e disorder, bipolar type (HCC) Take 1 tablet (50 mg total) by mouth nightly as needed for sleep. 10 tablet 06/26/19 22 Active ibuprofen (MOTRIN) 600 MG tablet Take 1 tablet (600 mg total) by mouth 3 (three) times a day as needed for mild pain (pain). 20 tablet 10/07/19 25 Active lidocaine (LIDODERM) 5 % patch Place 1 patch on the skin daily. Apply patch and leave on for 12 hours then remove. Patch may remain on skin for 12 hours per day. 30 patch 10/07/19 25 Active cyclobenzaprine (FLEXERIL) 10 MG tablet Take 0.5 tablets (5 mg total) by mouth 3 (three) times a day as needed for muscle spasms. 9 tablet 10/07/19 25 Active hydrOXYzine HCl (ATARAX) 25 MG tablet Take 1 tablet (25 mg total) by mouth 4 times daily (every 6 hours) as needed for anxiety. 30 tablet 10/07/19 25 Active melatonin 3 MG Tab tablet Take 1 tablet (3 mg total) by mouth nightly as needed (difficulty sleeping). 7 tablet 10/07/19 25 Active nicotine polacrilex (NICORETTE) 2 MG gum Apply 1 each (2 mg total) to the mouth or throat every 2 (two) hours as needed for smoking cessation. 100 tablet 10/07/19 25 Active lidocaine (LIDODERM) 5 % patch Place 1 patch on the skin once. Apply patch and leave on for 12 hours then remove. Patch may remain on skin for 12 hours per day. 30 patch 10/07/19 25 Active cyclobenzaprine (FLEXERIL) 5 MG tablet Take 1 tablet (5 mg total) by mouth 3 times daily (every 8 hours) as needed for muscle spasms. 12 tablet 10/07/19 25 Active lidocaine (LIDODERM) 5 % patch Place 1 patch on the skin once. Apply patch and leave on for 12 hours then remove. Patch may remain on skin for 12 hours per day. Do not start before October 07, 2024. 30 patch 10/08/19 25 Active risperiDONE ER (UZEDY) 100 MG/0.28ML subcutaneous injectionIndicat ions:Schizoaffec tive disorder, unspecified type (HCC) Inject 0.28 mL (100 mg total) under the skin every 30 days (once a month). Do not start before December 27, 2025. 0.28 mL 12/28/19 26 026 Active escitalopram (LEXAPRO) 5 MG tabletIndication s:Schizoaffectiv e disorder, unspecified type (HCC) Take 1 tablet (5 mg total) by mouth daily. 30 tablet 12/01/19 25 025 Active risperiDONE (RisperDAL) 0.5 MG tabletIndication s:Schizoaffectiv e disorder, bipolar type (HCC) Take 1 tablet (0.5 mg total) by mouth 2 (two) times a day. 20 tablet 2 06/26/19 22 025 Discontinued(St op Taking at Discharge) escitalopram (LEXAPRO) 5 MG tabletIndication s:Schizoaffectiv e disorder, unspecified type (HCC) Take 1 tablet (5 mg total) by mouth daily. 30 tablet 12/01/19 25 025 Discontinued Active Problems Problem Noted Date Diagnosed Date Smoker 11/25/2024 Assessment & Plan (11/25/2024 10:57 AM EDT): Continue nicotine patch Psychosocial distress 11/24/2024 Assessment & Plan (11/25/2024 10:57 AM EDT): Psychiatry on board, continue hydroxyzine, trazodone Severe stimulant use disorder 11/24/2024 Assessment & Plan (11/25/2024 10:57 AM EDT): Psychiatry on board, continue hydroxyzine, trazodone Depression 09/20/2024 Agitation 11/16/2023 Methamphetamine abuse 06/20/2021 Schizoaffective disorder, bipolar type 2 Alteration in patient safety due to identified s uicide risk 12/31/2020 Overview (12/31/2020): Images from the original note were not included. [place] [id number] MY SAFETY PLAN Name: Lester Eduardo Date: 12/31/2020 MR#: [id number] The one thing that is most important [...] 2. Name: Mom (Uyen Mascorro) 3. Place: [facility] 4. Place: Mall and grocery store Step 4 - People whom I can ask for help: 1. Name: Hannah 2. Name: Jordon 3. Name: Phone: Step 5 - Professionals or agencies I can contact during a crisis 1. Name: [facility] Phone: 2. Name: [facility] 3. Name: Phone: Additional Resources: [place] infoline 211, Suicide Prevention Lifeline 8-098-806-YWSJ (8346), Text Hello to 498661, 914 Step 6 - Making the environment safe/access to guns: No access to guns This tool has been adapted from the [employer] Safety Plan [facility] Form 066594 R10-18 Pg 1 of 1 GERD (gastroesophageal reflux disease) Schizoaffective disorder 12/25/2020 Resolved Problems Problem Noted Date Diagnosed Date Resolved Date Hallucination 11/23/2024 11/30/2024 Assessment & Plan (11/25/2024 10:57 AM EDT): Psychiatry on board, continue hydroxyzine, trazodone Encounters * This document contains information received from the source organization and may not represent a complete record from that organization. Date Type Department Care Team Description 11/24/2024 Travel 11/22/2024 Travel 10/05/2024 8:54 PM EDT - 10/06/2024 1:21 PM EDT Hospital Encounter [facility] Emergency Department [address] [place] [phone] Kalia Arredondo MD Schizoaffective disorder (HCC) (Primary Dx); Auditory hallucination; Anxiety; Schizoaffective disorder, subchronic condition (HCC); Anxiety disorder of childhood or adolescence; Cigarette smoker; Hyperkinetic syndrome Discharge Disposition: Home or Self Care 10/05/2024 Travel 09/20/2024 9:05 AM EDT - 09/20/2024 6:18 PM EDT Hospital Encounter [facility] Emergency Department [address] [place] [phone] Lissy Galvan MD Methamphetamine abuse (HCC) (Primary Dx) Discharge Disposition: Home or Self Care 09/20/2024 Travel 09/19/2024 9:52 PM EDT - 09/19/2024 10:49 PM EDT Emergency [facility] Emergency Department [address] [place] [phone] Discharge Disposition: Home or Self Care 09/18/2024 10:43 PM EDT - 09/19/2024 7:11 AM EDT [facility] Emergency Department [address] [place] [phone] Eloped from emergency department (Primary Dx) Discharge Disposition: Home or Self Care from Last 3 Months Immunizations Immunization Administration [...] Given: Yes Alcohol Use Standard Drinks/Week Comments Yes 1 (1 standard drink = 0.6 oz pur e alcohol) Pt reports he drinks socialy AUDIT-C Answer Date Recorded Q1: How often do you have a drink containing alc ohol? 2-4 times a month 11/24/2024 Q2: How many drinks containi ng alcohol do you have on a typical day when you are drinking? 1 or 2 11/24/2024 Q3: How often do you have si x or more drinks on one occasion? Never 11/24/2024 Sex and Gender Information Value Date Recorded Sex Assigned at Male 12/25/2020 7:08 AM EST Legal Sex Male 5:26 PM EST Gender Identity Male 12/25/2020 7:08 AM EST Sexual Orientation Choose not to disclose 2021 12:05 PM EST Sexual Orientation Heterosexual (straight) 04/18 12:05 PM EST Last Filed Vital Signs Vital Sign Reading Time Taken Comments Blood Pressure 107/61 11/29/2024 8:19 PM EDT Pulse 96 11/29/2024 8:19 PM EDT Temperature 35.8 C (96.5 F) 11/29/2024 8:17 PM EDT Respiratory Rate 18 11/29/2024 8:17 PM EDT Oxygen Saturation 99% 11/29/2024 8:17 PM EDT Inhaled Oxygen Concentration - - Weight 76.1 kg (167 lb 12.3 oz) 025 10:10 AM EDT Height 180.3 cm (5' 11 ) 11/24/2024 10: 10 AM EDT Body Mass Index 23.4 11/24/2024 10:10 AM EDT Plan of Treatment Health Maintenance Due [...] Procedure Name Priority Date/Time Associated Diagnosis Comments POCT ALCOHOL BREATH TEST (ED) Routine 11/23/2024 8:55 PM EDT PHENCYCLIDINE (PCP) SCREEN, URINE STAT 09/20/2024 2:11 [...] EDT from Last 3 Months Results * POCT Alcohol Breath Test (11/23/2024 8:55 PM EDT) Breath Alcohol 0.000 Breath 11/23/2024 8:55 PM EDT us Barbara Estrada PAPER MACHINE BACKTENDER POINT OF CARE TEST ORDERABLES Final Result * Fentanyl Screen, Urine (09/20/2024 2:11 PM EDT) Fentanyl Screen, Urine Negative Negative <5 ng/mL 09/20/2024 3:14 PM EDT [facility] Comment: * FOR MEDICAL PURPOSES ONLY * Confirmation upon request. Urine Urine specimen obtained by clean catch procedure / Unknown 09/20/2024 2:11 PM EDT 09/20/2024 2:32 PM EDT us Eleazar Trinh MD URINE ORDERABLES Final Result Performing Organization Address [facility] [place] [address], [place] [address] * (ABNORMAL) Cannabinoid Screen, Urine (09/20/2024 2:11 PM EDT) Cannabinoid Screen, Urine Positive( A) Negative <50 ng/mL 09/20/2024 3:14 PM EDT [facility] Comment: * FOR MEDICAL PURPOSES ONLY * Confirmation upon request. Urine Urine specimen / Unknown 09/20/2024 2:11 PM EDT 09/20/2024 2:32 PM EDT us Eleazar Trinh MD URINE ORDERABLES Final Result Performing Organization Address City/[facility] [place] [address], [place] [address] * Phencyclidine (PCP) Screen, Urine (09/20/2024 2:11 PM EDT) PCP Screen, Urine Negative Negative <25 ng/mL 09/20/2024 3:14 PM EDT [facility] Comment:* FOR MEDICAL PURPOS ES ONLY * Urine Urine specimen / Unknown 09/20/2024 2:11 PM EDT 09/20/2024 2:32 PM EDT us Eleazar Trinh MD URINE ORDERABLES Final Result Performing Organization Address [facility]/ZIP Co de Phone Number [address] [address], [address] [address] * Opiate Screen, Urine (09/20/2024 2:11 PM EDT) Opiate, Urine Negative Negative <300 ng/mL 09/20/2024 3:14 PM EDT [facility] Comment:* FOR MEDICAL PURPOS ES ONLY * Urine Urine specimen / Unknown 09/20/2024 2:11 PM EDT 09/20/2024 2:32 PM EDT us Eleazar Trinh MD URINE ORDERABLES Final Result Performing Organization Address [facility] Co de Phone Number [address] [address], [address] [address] * Cocaine Screen, Urine (09/20/2024 2:11 PM EDT) Cocaine Screen, Urine Negative Negative <300 ng/mL 09/20/2024 3:14 PM EDT [facility] Comment:* FOR MEDICAL PURPOS ES ONLY * Urine Urine specimen / Unknown 09/20/2024 2:11 PM EDT 09/20/2024 2:32 PM EDT us Eleazar Trinh MD URINE ORDERABLES Final Result Performing Organization Address [facility] Co de Phone Number [address] [address], [address] [address] * Benzodiazepine Screen, Urine (09/20/2024 2:11 PM EDT) Benzodiazepine Screen, Urine Negative Negative <200 ng/mL 09/20/2024 3:14 PM EDT [facility] Comment:* FOR MEDICAL PURPOS ES ONLY * Urine Urine specimen / Unknown 09/20/2024 2:11 PM EDT 09/20/2024 2:32 PM EDT us Eleazar Trinh MD URINE ORDERABLES Final Result Performing Organization Address [facility] [place] [address], [place] [address] * (ABNORMAL) Amphetamine Screen, Urine (09/20/2024 2:11 PM EDT) Pathologist [facility] Amphetamine Screen, Urine Positive( A) Negative <1000 ng/mL 09/20/2024 3:14 PM EDT [facility] Comment: * FOR MEDICAL PURPOSES ONLY * Confirmation upon request. Urine Urine specimen / Unknown 09/20/2024 2:11 PM EDT 09/20/2024 2:32 PM EDT us Eleazar Trinh MD URINE ORDERABLES Final Result Performing Organization Address [facility] [place] [address], [place] [address] * (ABNORMAL) POCT Glucose, Fingerstick (09/20/2024 11:34 AM EDT) POC Glucose 113(H) 65 - 99 mg/dL 09/20/2024 11:35 AM EDT Blood specimen / Unknown 09/20/2024 11:34 AM EDT 09/20/2024 11:35 AM EDT Lissy Galvan MD POINT OF CARE TEST ORDERAB LES Final Result HOSPITAL [facility] See Below from Last 3 Months Insurance [facility] Advance Directives * Full Code (Latest Code Status on File) Date Activated Date Inactivated Comments 11/24/2024 9:41 AM Question Answer Comments Decision Thoroughly Discussed with: Patient * Full Code Date Activated Date Inactivated Comments 10/06/2024 3:58 AM 11/22/2024 10:39 PM * Full Code Date Activated Date Inactivated Comments 09/20/2024 3:03 PM 10/05/2024 8:43 PM * Full Code Date Activated Date Inactivated Comments 06/25/2024 10:01 PM 07/10/2024 6:28 AM * Full Code Date Activated Date Inactivated Comments 11/16/2023 7:24 AM 12/24/2023 10:53 PM Healthcare Agents on File Name Relationship Healthcare Agent Relationshi p Communication Hannah Duran Other 1. [facility] Care Teams Engineer Process Relationship Specialty Start Date End Date Pcp, No PCP - General General Medicine 11/22/24
--- OUTSIDE RECORDS SUMMARY | 2024-12-01 00:41 | XMS_ITS | Encounter Summary ---
Author Organization [employer] [facility] Address [address] [place] [address] [address] [place] [address] Care Team Providers Care Hide Examiner Name Role Phone Kelby Johnson RN Unavailable [phone] Marilyn Madrid Unavailable Reason for Visit * Reason Onset Date Comments New Patient 09/30/2022 Encounter Details Date Type Department Care Team (Late st Contact Info) Description 09/30/2022 Telephone [facility] [address] [place] [address] Cory Jackson MD [address] [place] [address] New Patient Social History Tobacco Use Types [...] not take insurance to please switch to [employer] C3, no answer/left Vm to call back at [phone]. documented in this encounter Plan of Treatment Not on file documented as of this encounter Visit Diagnoses Not on filedocumented in this encounter Care Teams Hide Examiner Relationship Specialty Start Date End Date Kelby Johnson, RN [address] [place] [address] [place] [address] Registered Nurse Family Medicine 09/22/24 Marilyn Madrid 09/23/24 documented as of this encounter
--- OUTSIDE RECORDS SUMMARY | 2024-12-01 00:41 | XMS_ITS | Encounter Summary ---
Author Organization [employer] Address [address] [place] [address] [address] [place] [address] Care Team Providers Care Clammer Name Role Phone Kelby Johnson RN Unavailable [phone] Marilyn Madrid Unavailable Reason for Visit * Reason Comments Care Coordination C3 -W Marilyn silver telephone call outreach Encounter Details Date Type Department Care Team (Latest Contact Info) Description 11/29/2024 Patient Outreach [facility] [address] [place] [address] Marilyn Madrid Care Coordination (C3 -W Marilyn Madrid telephone call outreach) Social History Tobacco Use Types Packs/Day Years [...] PM EST documented as of this encounter Progress Notes * Marilyn Madrid - 11/29/2024 2:33 PM EDT CHLevon Madrid , placed outbound call to patient in regards to offer services. CHW introducing herself from [facility] with CHW's name, department and direct contact number requesting call back. Will re-attempt to contact within 5 days. and address not confirmed. documented in this encounter Plan of Treatment Not on file documented as of this encounter Visit Diagnoses Not on filedocumented in this encounter Care Teams Clammer Relationship Specialty Start Date End Date Kelby Johnson RN [address] [place] [address] Registered Nurse Family Medicine 09/22/24 Marilyn Madrid 09/23/24 documented as of this encounter
--- OUTSIDE RECORDS SUMMARY | 2024-12-01 00:41 | XMS_ITS ---
Author Organization [employer] [facility] Address [address] [place] [address] [address] [place] [address] Care Team Providers Care Food Service Substitute Name Role Phone Kelby Johnson RN Unavailable [phone] Marilyn Madrid Unavailable CM Complex Status:Outreach In Progress (Enrolling) Start date:09/22/2024 Enrollment reason:[facility] Overview Missing [facility] List- Patient was admitted to [facility] in [place] on 09/21/24 for schizoaffective d/o. Case Team Name Relationship Phone Kelby Johnson RN(Responsible Staff) Registered [facility] [phone] Continued Care and Services Coordination
[2024-12-01 01:05] LABS: Appearance Urine Clear; Glucose Urine UA Negative (Negative); PH 7.5 (5.0-9.0); Specific Gravity - Urine 1.025 (1.005-1.025); UMIC TRIGGER UACC YES
[2024-12-01] MEDS: cefTRIAXone sodium 500 MG, Lidocaine HCl 1 % MPF 1 ML IM (01:13)
--- NOTE | 2024-12-01 01:17 | ED_ITS ---
HPI - Male Genitourinary General Chief complaint: Urogenital-Male Stated complaint: sti? Time Seen by Provider: 12/01/24 00:29 Source: patient, RN notes reviewed and old records reviewed Mode of arrival: ambulatory Limitations: no limitations History of Present Illness ED Provider: Yahaira GERMAN Narrative: 34-year-old male presents for evaluation of pain with urination. He reports has been going on for a few days. He reports multiple new sexual encounters while he was intoxicated. He denies any rashes, swelling, testicular pain denies any urethral discharge. He reports that his pain is most often when he is voiding. no fevers or chills Related Data Previous Rx's ?Medication ?Instructions ?Recorded doxycycline hyclate 100 mg capsule 100 mg PO BID #14 c aps 04/14/21 doxycycline hyclate 100 mg capsule 100 mg PO BID 10 da ys #20 caps 12/17/22 metronidazole 500 mg tablet 500 mg PO BID 7 days #14 t abs 12/17/22 valacyclovir 1 gram tablet 1,000 mg PO BID 5 days #10 tabs 12/17/22 (Valtrex) acetaminophen 500 mg capsule 1,000 mg (2 x 500 mg) PO .q8 PRN 08/31/24 fever or pain #30 caps amoxicillin 875 mg-potassium 1 tab PO BID #10 tabs clavulanate 125 mg tablet ibuprofen 600 mg tablet 600 mg PO Q8H PRN fever or p ain 08/31/24 #30 tabs cyclobenzaprine 10 mg tablet 10 mg PO BID PRN muscle s pasm #7 11/11/24 tabs doxycycline hyclate 100 mg tablet 100 mg PO BID #14 ta bs 12/01/24 Allergies Allergy/AdvReac Type Severity Reaction Status Date / Time No Known Allergies (No Known Allergy Verified 12/01/24 00:23 Allergies*) Review of Systems Constitutional: Constitutional: Denies body ache(s), Denies chills and Denies fever(s) Genitourinary: Genitourinary: Denies hematuria, Denies genital lesions, Denies genital pain, Reports dysuria, Denies flank pain, Denies penile discharge, Denies scrotal swelling, Denies testicular mass, Denies testicular pain and Re ports urinary frequency PMFSH Social History Social History Advance Directives: No Advance Directives Information Provided: Yes Physical Exam Vital Signs: Vital Signs: Last Vital Signs Temp 97.9 F 12/01/24 00:21 Pulse 111 H 12/01/24 00:21 Resp 20 12/01/24 00:21 BP 145/85 H 12/01/24 00:21 Pulse Ox 99 12/01/24 00:21 O2 Del Method Room Air 12/01/24 00:21 BMI result Body Mass Index 24.1 Const: General: healthy appearing, comfortable, no acute distress, alert and awake Nutritional Appearance: well nourished Orientation/consciousness: patient oriented x3 GI: Inspection: No distended Palpation (GI): Soft to palpation, not firm, nontender, no guarding and not rigid : Penis: uncircumcised, not edematous and not erythematous Scrotum: scrotum normal Neuro: General: patient oriented x3 Cranial nerves: Yes CN's II-XII intact bilaterally and Yes Bilaterally intact EOM present Cognition (Neuro): normal cognition Medications Administered Discontinued Medications Generic Name Dose Route Start Last Admin Trade Name Freq PRN Reason Stop Dose Admin Ceftriaxone Sodium 500 mg/ 0 mg 12/01/24 01:06 12/01/24 01:13 Lidocaine HCl 1 ml IM 12/01/24 01:07 1 kit ONCE ONE Administration Doxycycline Monohydrate 100 mg 12/01/24 01:06 12/01/24 01:13 Doxycycline Monohydrate 100 Mg Capsule PO 12/01/24 01:07 100 mg ONCE ONE Administration Medical Decision Making Medical Decision Making [facility] Narrative: 34-year-old male presents for evaluation of urethritis. He reports multiple new sexual encounter was while he was intoxicated and not using protection. Denies any testicular pain, swelling or urethral discharge. Urinalysis is positive for hematuria only. I offered him treatment for gonorrhea and chlamydia and he would like to be treated empirically. Serologies pending for these. We will refer the patient to Urology for his persistent hematuria Differential Diagnosis Differential Diagnoses: The differential diagnosis associated with the presentation includes urethritis UTI Phimosis Paraphimosis Lab Data [facility] Lab Attestation statement: I reviewed the patient's lab results. Labs: Lab Results 12/01/24 Range/Units 00:55 Urine Color Yellow Urine Appearance Clear Urine pH 7.5 (5.0-9.0) Ur Specific [place] 1.025 (1.005-1.025) Urine Protein Negative (Neg-Trace) mg/dL Urine Glucose (UA) Negative (Negative) mg/dL Urine Ketones Negative (Negative) mg/dL Urine Blood Moderate (2+) H (Negative) Urine Nitrite Negative (Negative) Ur Leukocyte Esterase Negative (Negative) Urine RBC >20 H (0-2) /HPF Urine WBC 0-5 (0-5) /HPF Ur Squamous Epith Cells 0-2 (0-2) /HPF Urine Bacteria None Seen (None Seen) Hyaline Casts 0-2 (0-2) /LPF Discharge Plan Discharge Clinical Impression: Urethritis, Hematuria Patient Disposition: Home, Self-Care Instructions: Hematuria (ED), Urethritis (ED) Additional Instructions: you were treated for both gonorrhea and chlamydia. we will call you if you test positive for either Take the doxycycline twice daily for a week. You should abstain from sexual intercourse during this time. Your urinalysis did have a significant amount of blood in the urine and on your previous urinalysis this seems to have been a thing for quite some time I recommend that you follow up with Urology regarding this return for new or worsening symptoms Prescriptions: New doxycycline hyclate 100 mg tablet 100 mg PO BID Qty: 14 0RF No Action doxycycline hyclate 100 mg capsule 100 mg PO BID Qty: 14 0RF doxycycline hyclate 100 mg capsule 100 mg PO BID 10 Days Qty: 20 0RF metronidazole 500 mg tablet 500 mg PO BID 7 Days Qty: 14 0RF valacyclovir [Valtrex] 1 gram tablet 1,000 mg PO BID 5 Days Qty: 10 0RF amoxicillin-pot clavulanate 875-125 mg tablet 1 tab PO BID Qty: 10 0RF ibuprofen 600 mg tablet 600 mg PO Q8H PRN (Reason: fever or pain) Qty: 30 0RF acetaminophen 500 mg capsule 1,000 mg PO .q8 PRN (Reason: fever or pain) Qty: 30 0RF cyclobenzaprine 10 mg tablet 10 mg PO BID PRN (Reason: muscle spasm) Qty: 7 0RF Print Language: Telugu
[2024-12-01 01:21] VITALS: BP 145/85; PULSE 111; RESP 20; TEMP 36.6; O2SAT 99
[2024-12-01 02:33] LABS: CT PCR Urine NOT DETECTED (Not Detect.); NG PCR Urine NOT DETECTED (Not Detect.)
== END 2024-12-01 01:22 | disposition home or self-care (01) ==
PROVIDERS: Emergency Provider Emergency Medicine
DX: N34.2 Other urethritis (principal); R31.9 Hematuria, unspecified; R30.0 Dysuria; Z20.2 Contact with and (suspected) exposure to infections with a predominantly sexual mode of transmission
CPT/HCPCS: 81001; 87491; 87591; 96372; 99282; 99284; J0696; J2003

== ENCOUNTER 2025-02-04 20:45 | Inpatient (IN) | payer OTHER, SELFPAY ==
[2025-02-04 20:48] VITALS: BP 127/91; PULSE 108; RESP 18; TEMP 36.5; O2SAT 98; BMI 24.2
--- NOTE | 2025-02-04 20:48 | ED_ITS ---
HPI - General Adult General Chief complaint: General Medical Stated complaint: Body pain/sob Time Seen by Provider: 02/04/25 23:13 Source: patient, RN notes reviewed and old records reviewed Mode of arrival: ambulatory Limitations: altered mental status History of Present Illness ED Provider: Dr. Thuy Maxwell HPI narrative: 34-year-old homeless male with a known history of schizophrenia (not currently on medications) who presents to the ED for evaluation of diffuse pain. He describes ?really, really bad? pain centered in the neck and extending to both arms, the underside of the foot (after ?hitting? it while walking without shoes), and the overlying skin. Symptoms began earlier today and prompted his arrival by ambulance. He denies daily prescription medications, stating he is not taking anything for his schizophrenia. He reports takin?omeprazole? today. He denies medication allergies. He admits smoking methamphetamine earlier today. He has been sleeping outside and has not utilized local shelters. Patient also describes that his schizophrenia hurts, indicating distress related to his psychiatric condition. Would like help with this. Denies SI/HHI. Denies AH/VH. Related Data Home Medications ?Medication ?Instructions ?Recorded ?Confirmed olanzapine 10 mg tablet 10 mg PO BEDTIME depressive 02/05/25 02/05/25 disorder Allergies Allergy/AdvReac Type Severity Reaction Status Date / Time No Known Allergies (No Known Allergy Verified 02/04/25 20:53 Allergies*) Review of Systems 2 Review of Systems: as per HPI, full review of systems performed and negative but for the above mentioned pertinent positives and negatives. [facility] Social History Social History Smoked in Last 30 Days: Yes Use of substances other than those prescribed or required for medical reasons: Yes Substance Use Type: Marijuana Advance Directives: No Advance Directives Information Provided: Yes Physical Exam ED Exam Exam: GENERAL: Anxious, agitated, uncontrolled movements. SKIN: Normal skin color for ethnicity, warm, dry, no rashes noted, no crepitus, no petechiae, no blistering. HEENT: Normocephalic, atraumatic, no stridor, posterior oropharynx nonerythematous, poor ramona dentition, dry mucous membranes, EOMI. NECK: Soft, supple, full ROM, midline structures nontender, no step-offs, no deformities, no lymphadenopathy. CHEST: Heart regular tachycardia, no murmurs, symmetric chest rise and fall, no crepitus. PULMONARY: Clear to auscultation bilaterally, no labored breathing, no wheezes/rhales/rhonchi. ABDOMINAL: Soft, nondistended, nontender, positive bowel sounds in all quadrants. : Deferred. MUSCULOSKELETAL: Normal tone, full range of motion, no deformities, no peripheral edema. NEURO: Alert and oriented to person, CN II through XII intact, equal strength and sensation bilateral upper and lower extremities, no focal neurologic deficits. PSYCHIATRIC: Anxious affect, agitated, tangential speech, poor eye contact and psychomotor agitation. Vital Signs: Vital Signs - 24 hr 02/05/25 22:46 02/06/25 06:32 Temperature 98.1 F 97.4 F Pulse Rate 69 70 Respiratory Rate 16 14 Blood Pressure 112/75 111/85 Pulse Oximetry 98 99 Oxygen Delivery Method Room Air Room Air BMI result Body Mass Index 24.2 Course Course Course Narrative: RME, this is a rapid medical exam performed by Cory Syed please refer to primary provider for complete H&P- 34 year old male presents for evaluation of multiple complaints including back pain, shortness of breath, body aches. Plan for viral swabs. He also complains of left facial pain Reevaluation(s) Reevaluation #1: 5:45 PM 02/05/2025 (Chelsey Smiley MD): Time: 17:46 Date: 02/05/25 Provider: Edwin Smiley MD Patient in physician observation for psychiatric evaluation.? No acute events reported overnight. No current complaints. VS stable.? Patient is in bed search status. Will continue to monitor. Time: 17:46 Reevaluation #2: Time: 06:03 Date: 02/06/25 Provider: Magdalena Christensen DO Patient in physician observation for psychiatric evaluation.? No acute events reported overnight. No current complaints. VS stable.? pending IPBS. Will continue to monitor. Reevaluation #3: Time: 12:31 Date: 02/06/25 Provider: Magdalena Christensen DO Physician observation ended at 12:31 Patient to be admitted as inpatient to psychiatry. Medications Administered Discontinued Medications Generic Name Dose Route Start Last Admin Trade Name Freq PRN Reason Stop Dose Admin Acetaminophen 975 mg 02/04/25 23:49 02/05/25 00:19 Acetaminophen 325 Mg Tablet PO 02/04/25 23:50 975 mg ONCE ONE Administration Medical Decision Making Medical Decision Making [facility] Narrative: 34-year-old homeless male with schizophrenia presenting with diffuse pain (neck, arms, foot, skin). Flu swab negative; clinician remains concerned for viral syndrome. Patient reports recent methamphetamine use and is not on antipsychotic therapy. No medication allergies. Differential diagnosis includes suicidal ideations, homicidal ideations, drug or alcohol use, depression, anxiety, mood disorder, decompensated mental illnesses such as schizophrenia or bipolar disorder, medication noncompliance, among many others. Medical clearance protocol was initiated. Problem #1: Acute multifocal pain (neck, arms, foot, skin) Assessment: Severe pain by patient report after minor foot trauma and unclear mechanism for neck/arm pain. Plan: - Administer analgesic with antipyretic properties in ED as discussed with patient. - Reassess pain response during ED stay. Problem #2: Possible viral illness (influenza-like) Assessment: Flu swab negative; clinician nevertheless concerned given community prevalence and patient appearance. Plan: - Symptomatic treatment with antipyretic/analgesic (see Problem #1). Problem #3: Schizophrenia (not currently treated) Assessment: Chronic mental health condition; patient off medications; no inpatient psychiatric beds available. Patient reports that his schizophrenia hurts, indicating subjective distress related to his psychiatric condition. Plan: - Care Team eval, med clearance initiated. Problem #4: Homelessness / social situation Assessment: Patient sleeping outdoors; has not utilized local shelters. Plan: - Discussed patient's lack of prison use and general process for accessing shelters. Problem #5: Methamphetamine use Assessment: Patient admits smoking meth today. Plan: - Offered water and observation in ED. Differential Diagnosis Differential Diagnoses: The differential diagnosis associated with the presentation includes (as above) Admission/Observation Consideration of admission/observation: Escalation of care including admission/observation considered Consult Healthcare Provider Management of the patient was discussed with: Behavioral Health Provider Lab Data [facility] Lab Attestation statement: I reviewed the patient's lab results. 02/05/25 00:20 02/05/25 00:20 Labs: Lab Results 02/04/25 02/05/25 02/05/25 Range/Units 20:57 00:17 00:20 WBC 12.0 H (4.8-10.8) X10*3/uL RBC 3.76 L (4.60-5.80) X10*6/uL Hgb 11.6 L (14.0-18.0) g/dl Hct 34.3 L (42.0-52.0) % MCV 91.2 (80.0-98.0) fL MCH 30.9 (27.0-33.0) pg MCHC 33.8 (31.0-36.0) g/dl RDW 11.8 (11.0-16.0) % Plt Count 446 H (160-400) X10*3/uL MPV 8.5 L (9.4-12.4) fL Immature Gran % (Auto) 0.3 (0.0-0.4) % Neut % (Auto) 57.4 (45-73) % Lymph % (Auto) 29.3 (20-40) % Ventura % (Auto) 10.0 (2-11) % Eos % (Auto) 2.2 (0-4) % Baso % (Auto) 0.8 (0-2) % Lymph # (Auto) 3.5 (1.2-4.9) X10*3/uL Ventura # (Auto) 1.2 (0.1-1.2) X10*3/uL Eos # (Auto) 0.3 (0.0-0.4) X10*3/uL Baso # (Auto) 0.1 (0.0-0.2) X10*3/uL Abs Immat Gran (auto) 0.03 (0.00-0.03) X10*3/uL Absolute Neuts (auto) 6.9 (2.0-8.3) x10*3/uL Absolute Nucleated RBC 0.000 (0.0-0.012) X10*3/uL Nucleated RBC % (auto) 0.0 (0.0-0.2) /100WBC Sodium 143 (135-145) mmol/L Potassium 3.6 (3.3-5.1) mmol/L Chloride 109 H (96-108) mmol/L Carbon Dioxide 27 (22-29) mmol/L Anion Gap 11 L (12-20) BUN 16 (9-16) mg/dL Creatinine 0.81 (0.5-1.4) mg/dL Estim Creat Clear Calc 138.1 Estimated GFR > 60 Random Glucose 82 (60-115) mg/dL Calcium 8.8 (8.4-10.2) mg/dL Total Bilirubin 0.3 (0.0-1.0) mg/dL AST 42 H (5-37) U/L ALT 28 (0-40) U/L Alkaline Phosphatase 95 (39-117) U/L Total Protein 6.4 L (6.5-8.0) g/dL Albumin 4.2 (3.5-5.0) g/dL Urine Opiates Screen Not Detected (Not Detect) Ur Buprenorphine Scrn Not Detected (Not Detect) ng/mL Ur Oxycodone Screen Not Detected (Not Detect) ng/mL Urine Methadone Screen Not Detected (Not Detect) ng/mL Urine Fentanyl Screen Not Detected (Not Detect) Ur Barbiturates Screen Not Detected (Not Detect) Ur Phencyclidine Scrn Not Detected (Not Detect) Ur Amphetamines Screen Not Detected (Not Detect) U Benzodiazepines Scrn Not Detected (Not Detect) Urine Cocaine Screen Not Detected (Not Detect) U Marijuana (THC) Screen POSITIVE H (Not Detect) Ethyl Alcohol < 10 mg/dL Influenza Type A (PCR) NEGATIVE (Negative) Influenza Type B (PCR) NEGATIVE (Negative) RSV RNA Qual (PCR) NEGATIVE (Negative) SARS-CoV-2 RNA (RT-PCR) NEGATIVE (Negative) External Record Review External record reviewed: Inpatient record Chronic Conditions Patient?s care impacted by: Other (Schizophrenia) Social Determinants Patient?s care significantly limited by Social Determinants of Health including: Inadequate housing, Alcoholism and drug addiction in family, Problems related to primary support group and Other Social Determinant of Health Discharge Plan Discharge Clinical Impression: Schizoaffective disorder, Housing insecurity Patient Disposition: Admitted As Inpatient Interventions: Admission Worksheet (ED) Last Done: 02/06/25 12:30
[2025-02-04 21:39] LABS: Resp Syncy Virus RNA Qual PCR NEGATIVE (Negative); SARS COV2 PCR INHOUSE NEGATIVE (Negative)
--- OUTSIDE RECORDS SUMMARY | 2025-02-05 00:23 | XMS_ITS | Encounter Summary ---
Author Organization [facility] Address [address] [place] [address] Care Team Providers Care Vp Production Name Role Phone Kelby Johnson RN Unavailable [phone] Marilyn Madrid Unavailable Kelby Johnson RN Unavailable [phone] Jennifer Virgen Unavailable Encounter Details Date Type Department Care Team (Late st Contact Info) Description 03/11/[address] [facility] [address] [place] [address] Luther Barnes DDS [address] [place] [address] Social History Tobacco Use Types Packs/Day Years [...] on filedocumented in this encounter Care Teams Vp Production Relationship Specialty Start Date End Date Kelby Johnson RN [address] [place] [address] Registered Nurse Family Medicine 09/22/24 12/20/24 Marilyn Madrid 09/23/24 12/20/24 Kelby Johnson, RN [address] [place] [address] [place] [address] Registered Nurse Family Medicine 01/23/25 Jennifer Virgen 01/23/25 documented as of this encounter
--- OUTSIDE RECORDS SUMMARY | 2025-02-05 00:23 | XMS_ITS | Encounter Summary ---
Author Organization [employer] [facility] Address [address] [place] [address] [address] [place] [address] Care Team Providers Care Hanging Flags Decorator Name Role Phone Kelby Johnson RN Unavailable [phone] Marilyn Madrid Unavailable Kelby Johnson RN Unavailable [phone] Jennifer Virgen Unavailable Reason for Visit * Reason Onset Date Comments New Patient 09/30/2022 Encounter Details Date Type Department Care Team (Late st Contact Info) Description 09/30/2022 Telephone [facility] MEDICINE [address] [place], [place] [id number] Cory Jackson MD [address] [place] [address] New Patient Social History Tobacco Use Types [...] not take insurance to please switch to [employer] C[employer], no answer/left Vm to call back at [phone]. documented in this encounter Plan of Treatment Not on file documented as of this encounter Visit Diagnoses Not on filedocumented in this encounter Care Teams Hanging Flags Decorator Relationship Specialty Start Date End Date Kelby Johnson, RN [address] [place] [address] Registered Nurse Family Medicine 09/22/24 12/20/24 Marilyn Madrid 09/23/24 12/20/24 Kelby Johnson RN [address] [place] [address] Registered Nurse Family Medicine 01/23/25 Jennifer Virgen 01/23/25 documented as of this encounter
--- OUTSIDE RECORDS SUMMARY | 2025-02-05 00:23 | XMS_ITS ---
Author Organization [employer] Address [address] [place] [address] [address] [place] [address] Care Team Providers Care Exceptional [employer] Teacher Name Role Phone Kelby Johnson RN Unavailable [phone] Jennifer Virgen Unavailable CH[facility] Complex Status:Outreach In Progress (Enrolling) Start date:01/23/2025 Enrollment reason:ADT Feed Overview ED- Pt went to [facility] on 01/23/25. Case Team Name Relationship Phone Jennifer Virgen(Responsible Staff) [phone] Continued Care and Services Coordination
--- OUTSIDE RECORDS SUMMARY | 2025-02-05 00:23 | XMS_ITS | Clinical Summary ---
Author Organization [facility] Address [address] [place] [address] Care Team Providers Care Assistant Athletic Trainer Name Role Phone Pcp, No Primary Care Provider Unavailabl e Allergies No known active allergies Medications * This document contains information received from the source organization and may not represent a complete record from that organization. traZODone (DESYREL) 50 MG tabletIndications :Schizoaffective disorder, bipolar type (HCC) Take 1 tablet (50 mg total) by mouth nightly as needed for sleep. 10 tablet 2 Active ibuprofen (MOTRIN) 600 MG tablet Take 1 tablet (600 mg total) by mouth 3 (three) times a day as needed for mild pain (pain). 20 tablet 5 Active lidocaine (LIDODERM) 5 % patch Place 1 patch on the skin daily. Apply patch and leave on for 12 hours then remove. Patch may remain on skin for 12 hours per day. 30 patch 5 Active cyclobenzaprine (FLEXERIL) 10 MG tablet Take 0.5 tablets (5 mg total) by mouth 3 (three) times a day as needed for muscle spasms. 9 tablet 5 Active hydrOXYzine HCl (ATARAX) 25 MG tablet Take 1 tablet (25 mg total) by mouth 4 times daily (every 6 hours) as needed for anxiety. 30 tablet 5 Active melatonin 3 MG Tab tablet Take 1 tablet (3 mg total) by mouth nightly as needed (difficulty sleeping). 7 tablet 5 Active nicotine polacrilex (NICORETTE) 2 MG gum Apply 1 each (2 mg total) to the mouth or throat every 2 (two) hours as needed for smoking cessation. 100 tablet 5 Active lidocaine (LIDODERM) 5 % patch Place 1 patch on the skin once. Apply patch and leave on for 12 hours then remove. Patch may remain on skin for 12 hours per day. 30 patch 5 Active cyclobenzaprine (FLEXERIL) 5 MG tablet Take 1 tablet (5 mg total) by mouth 3 times daily (every 8 hours) as needed for muscle spasms. 12 tablet 5 Active lidocaine (LIDODERM) 5 % patch Place 1 patch on the skin once. Apply patch and leave on for 12 hours then remove. Patch may remain on skin for 12 hours per day. Do not start before October 07, 2024. 30 patch 5 Active risperiDONE ER (UZEDY) 100 MG/0.28ML subcutaneous injectionIndicati ons:Schizoaffecti ve disorder, unspecified type (HCC) Inject 0.28 mL (100 mg total) under the skin every 30 days (once a month). Do not start before December 27, 2025. 0.28 mL 6 01/27/20 26 Active escitalopram (LEXAPRO) 5 MG tabletIndications :Schizoaffective disorder, unspecified type (HCC) Take 1 tablet (5 mg total) by mouth daily. 30 tablet 5 Active Active Problems Problem Noted Date Diagnosed [...] from the original note were not included. [facility]ACQUELIN [facility]OTE [address] [place] [address] MY SAFETY PLAN Name: Lester Eduardo Date: 12/31/2020 MR#: [id number] The one thing that is most important [...] 2. Name: Mom (Uyen Mascorro) 3. Place: [facility] 4. Place: Mall and grocery store Step 4 - People whom I can ask for help: 1. Name: Hannah 2. Name: Jordon 3. Name: Phone: Step 5 - Professionals or agencies I can contact during a crisis 1. Name: [facility] Phone: 2. Name: [facility] 3. Name: Phone: Additional Resources: [place] infoline 211, Suicide Prevention Lifeline 3-874-233-CZPI (5640), Text Hello to 161234, 277 Step 6 - Making the environment safe/access to guns: No access to guns This tool has been adapted from the [employer] Safety Plan [facility] Form 408626 R10-18 Pg 1 of 1 GERD (gastroesophageal reflux disease) Schizoaffective disorder 12/25/2020 Resolved Problems Problem Noted Date Diagnosed Date Resolved Date Hallucination 11/23/2024 11/30/2024 Assessment & Plan (11/25/2024 10:57 AM EDT): Psychiatry on board, continue hydroxyzine, trazodone Immunizations Immunization Administration Dates Next Due Influenza [...] Influenza Vaccine 09/09/2024 12/31/2020, 12/31/2020 COVID-19 Vaccine ( - 2024- season) 2024 HPV Vaccines (No Doses Required) Completed Procedures Procedure Name Priority Date/Time Associated Diagnosis Comments POCT ALCOHOL BREATH TEST (ED) Routine 11/23/2024 8:55 PM EDT from Last 3 Months Results * POCT Alcohol Breath Test (11/23/2024 8:55 PM EDT) Breath Alcohol 0.000 Breath 11/23/2024 8:55 PM EDT Barbara Estrada WINDOW DISPLAY DESIGNER POINT OF CARE TEST ORDERABLES Final Result from Last 3 Months Insurance [facility] Advance Directives * Full Code (Latest [...] Relationshi p Communication Hannah Duran Other 1. [facility] Care [facility] ti Care Teams Assistant Athletic Trainer Relationship Specialty Start Date End Date Pcp, No PCP - General General Medicine 11/22/24
--- OUTSIDE RECORDS SUMMARY | 2025-02-05 00:23 | XMS_ITS | Clinical Summary ---
Author Organization [facility] Address [address] [place] [address] 7t [place] [address] Care Team Providers Care Saturator Tender Name Role Phone Kelby Johnson RN Unavailable [phone] Jennifer Virgen Unavailable Allergies No known active allergies Medications [...] Methamphetamine abuse 06/20/2021 Schizoaffective disorder, bipolar type ([facility]/HCC) 06/20/2021 Alteration in patient safety due to identified s uicide risk 12/31/2020 Overview (04/19/2024): [place] [address] MY SAFETY PLAN Name: Lester Eduardo Date: 12/31/2020 MR#: [id number] The one thing that is most important [...] 2. Name: Mom (Uyen Mascorro) 3. Place: [facility] 4. Place: Mall and grocery store Step 4 - People whom I can ask for help: 1. Name: Hannah 2. Name: Jordon 3. Name: Phone: Step 5 - Professionals or agencies I can contact during a crisis 1. Name: [facility] Phone: 2. Name: [facility] 3. Name: Phone: Additional Resources: [place] infoline 211, Suicide Prevention Lifeline 4-071-573-QBVU (2794), Text Hello to 797637, 727 Step 6 - Making the environment safe/access to guns: No access to guns This tool has been adapted from the [employer] Safety Plan [facility] Form 659000 R10-18 Pg 1 of 1 GERD (gastroesophageal reflux disease) 1 Encounters Date Type Department Care Team Description 01/23/2025 Patient Outreach [facility] MED & PEDS [address] [place], [place] [id number] Cory Jackson MD Care Coordination (C3/CM Outreach) 01/23/2025 Patient Outreach [facility] [address] [place] [address] Cory Jackson MD Care Coordination (C3/CM Chart Review) 01/23/2025 Patient Outreach [facility] [address] [place] [address] Kelby Johnson, ARIANNA Care Coordination (C3CM- chart review) 01/23/2025 Patient Outreach [address] RN 12/20/2024 Patient Outreach [address] [address] [place], Marilyn Care Coordination (C3 CM-[facility] Marilyn [place] telephone call outreach) 12/13/2024 Patient Outreach [address] [address] [place], Marilyn Care Coordination (C3 CM-[facility] Marilyn [place] telephone call outreach) 12/06/2024 Patient Outreach [address] [address] [place], Marilyn Care Coordination (C3 CM-[facility] Marilyn [place] telephone call outreach ) 11/29/2024 Patient Outreach [address] [address] [place], Marilyn Care Coordination (C3 CM-[facility] Marilyn [place] telephone call outreach) 11/22/2024 Patient Outreach [address] [address] [place], Marilyn Care Coordination (C3 -[facility] Marilyn [place] telephone call outreach) 11/15/2024 Patient Outreach [address] [address] [place], Marilyn Care Coordination (C3 CM-[facility] Marilyn [place] telephone call outreach) 11/11/2024 Orders Only GENERIC EXTERNAL DATA DEPARTMENT Provider, Generic External Data from Last 3 Months Social History Tobacco [...] Bitewings 02/21/2024 02/19/2023 COVID-19 Vaccine (1 - 2024-2 6 season) 2024 Influenza Vaccine (#1) 2024 9, [...] Procedure Name Priority Date/Time Associated Diagnosis Comments CHLAMYDIA/TRICHOMONAS/ NEISSERIA GONORRHOEAE, PCR, URINE Routine 12/01/2024 12:55 AM EDT URINALYSIS, COMPLETE, WITH REFLEX TO CULTURE Routine 12/01/2024 12:55 AM EDT URINALYSIS, COMPLETE, WITH REFLEX TO CULTURE Routine [...] Recently Relevant to Health Maintenance Results * Chlamydia/Trichomonas/Neisseria gonorrhoeae, PCR, Urine (12/01/2024 12:55 AM EDT) CT PCR, Urine NOT DETECTED Not Detect. [facility] Comment:A not detected test result does not exclude the possibilityof infection because test results can be affected byimproper specimen collection, concurrent antibiotic therapy,or the number of organisms in the specimen which may bebelow the sensitivity of the test. As with many diagnostictests, results from the Xpert CT/NG assay should beinterpreted in conjunction with other laboratory andclinical data available to the clinician.The Xpert CT/NG assay should not be used for the evaluationof suspected sexual abuse or for other medico-legalindications. Additional testing is recommended in anycircumstance when false positive or false negative resultscould lead to adverse medical, social or psychologicalconsequences. NG PCR, Urine NOT DETECTED Not Detect. [facility] Comment:A not detected test result does not exclude the possibilityof infection because test results can be affected byimproper specimen collection, concurrent antibiotic therapy,or the number of organisms in the specimen which may bebelow the sensitivity of the test. As with many diagnostictests, results from the Xpert CT/NG assay should beinterpreted in conjunction with other laboratory andclinical data available to the clinician.The Xpert CT/NG assay should not be used for the evaluationof suspected sexual abuse or for other medico-legalindications. Additional testing is recommended in anycircumstance when false positive or false negative resultscould lead to adverse medical, social or psychologicalconsequences. 12/01/2024 12:5 5 AM EDT 12/01/2024 1:01 AM EDT us Generic External Data Provider LAB URINE ORDERAB LES Final Result [facility] [address] [place] [phone] * (ABNORMAL) Urinalysis, Complete, with Reflex to Culture (12/01/2024 12:55 AM EDT) Only the most recent of2 resultswithin the time period is included. Color Urine Yellow [facility] Appearance Urine Clear [facility] PH 7.5 5.0 - 9.0 [facility] Glucose Urine UA Negative Negative mg/dL [facility] Urine Blood Moderate (2+)(A) Negative [facility] Specific [place] - Urine 1.025 1.005 - 1.025 [facility] Urine Protein Negative Neg-Trace mg/dL [facility] Urine Ketones Negative Negative mg/dL [facility] Nitrite Urine Negative Negative [facility] Leukocyte Esterase Urine Negative Negative [facility] RBC Urine >20(A) 0 - 2 /HPF [facility] Urine WBC 0-5 0 - 5 /HPF [facility] Urine Squamous Epithelial Cell 0-2 0 - 2 /HPF [facility] Urine Bacteria None Seen None Seen [facility] Hyaline Casts, Urine 0-2 0 - 2 /LPF [facility] 12/01/2024 12:5 5 AM EDT 12/01/2024 1:01 AM EDT Narrative [facility] - 12/01/2024 1:11 AM EDT Urine, Clean Catch us Generic External Data Provider LAB URINE ORDERAB LES Final Result Performing Organization Address City/State/[facility] Co de Phone Number [facility] [address] [place] [address] [phone] from Last 3 Months Insurance [facility] C3 DENTAL-[facility] MEDICAID STAND ADULT Care Teams Saturator Tender Relationship Specialty Start Date End Date Kelby Johnson RN [address] [place] [id number] Registered Nurse Family Medicine 01/23/25 Jennifer Virgen 01/23/25
--- OUTSIDE RECORDS SUMMARY | 2025-02-05 00:23 | XMS_ITS | Encounter Summary ---
Author Organization [facility] Address [address] [place] [address] Care Team Providers Care Senior Occupational Therapist Name Role Phone Kelby Johnson RN Unavailable [phone] Marilyn [place] Unavailable Kelby Johnson RN Unavailable [phone] Jennifer Virgen Unavailable Reason for Visit * Reason Onset Date Comments unable to post insurance 04/19/2024 Encounter Details Date Type Department Care Team (Late st Contact Info) Description 04/19/[address] [facility] ADULT DENTAL [address] [place] [address] Maddison Esposito DDS [address] [place] [address] unable to post insurance Social History Tobacco [...] on filedocumented in this encounter Care Teams Senior Occupational Therapist Relationship Specialty Start Date End Date Kelby Johnson RN [address] [place] [address] Registered Nurse Family Medicine 09/22/24 12/20/24 Marilyn Madrid 09/23/24 12/20/24 Kelby Johnson RN [address] [facility] [place] [address] Registered Nurse Family Medicine 01/23/25 Jennifer Virgen 01/23/25 documented as of this encounter
--- OUTSIDE RECORDS SUMMARY | 2025-02-05 00:23 | XMS_ITS ---
Author Organization [facility] Address [address] [place] [address] 7 [place] [address] Care Team Providers Care Supplemental Nurse Name Role Phone Kelby Johnson RN Unavailable Jennifer Virgen Unavailable CM Complex Status:Outreach In Progress (Enrolling) Start date:01/23/2025 Enrollment reason:ADT Feed Overview ED- Pt went to [facility] ED on 01/23/25. Case Team Name Relationship Phone Kelby Johnson RN(Responsible Staff) Registered Artis gibbs [phone] Continued Care and Services Coordination
--- OUTSIDE RECORDS SUMMARY | 2025-02-05 00:23 | XMS_ITS | Encounter Summary ---
Author Organization [facility] [facility] [employer] [facility] Address [address] [place] [address] Care Team Providers Care Liquid Loader Name Role Phone Kelby Johnson RN Unavailable [phone] Marilyn [place] Unavailable Kelby Johnson RN Unavailable [phone] Jennifer Virgen Unavailable Reason for Visit * Reason Onset Date Comments appt 01/26/2023 Encounter Details Date Type Department Care Team (Late st Contact Info) Description 01/26/2023 Telephone [facility] ADULT DENTAL [address] [place] [address] Bryant Hoang, EDDA [address] [place] [address] appt Social History Tobacco Use Types Packs/Day [...] PM EST Appt was wait listed in [employer] since 12/2021 and he is checking in on status of appt. Called [facility] dental. No answer. Wait listed appt in [employer]. Informed patient message will be sent to the office for scheduling DR documented in this encounter Plan of Treatment Not on file documented as of this encounter Visit Diagnoses Not on filedocumented in this encounter Care Teams Liquid Loader Relationship Specialty Start Date End Date Kelby Johnson RN [address] [place] [address] Registered Nurse Family Medicine 09/22/24 12/20/24 Marilyn Madrid 09/23/24 12/20/24 Kelby Johnson RN [address] [place] [address] Registered Nurse Family Medicine 01/23/25 Jennifer Virgen 01/23/25 documented as of this encounter
[2025-02-05 00:32] LABS: MANUAL DIFF FLAG NO
[2025-02-05 00:34] LABS: Hematocrit 34.3 % (42.0-52.0); Hemoglobin 11.6 g/dl (14.0-18.0); Imm Gran Abs Auto 0.03 X10*3/uL (0.00-0.03); Imm Gran Pct Auto 0.3 % (0.0-0.4); Lymphocytes Absolute Auto 3.5 X10*3/uL (1.2-4.9); Mean Corpuscular HGB Conc 33.8 g/dl (31.0-36.0); Mean Corpuscular Hemoglobin 30.9 pg (27.0-33.0); Mean Corpuscular Volume 91.2 fL (80.0-98.0); NRBC Abs Auto 0.000 X10*3/uL (0.0-0.012); NRBC Pct Auto 0.0 /100WBC (0.0-0.2); Platelet Count 446 X10*3/uL (160-400); Red Blood Count 3.76 X10*6/uL (4.60-5.80); White Blood Count 12.0 X10*3/uL (4.8-10.8)
[2025-02-05 00:43] LABS: Cannabinoid Screen Urine POSITIVE (Not Detect)
[2025-02-05 00:48] LABS: Alanine Aminotransferase 28 U/L (0-40); Albumin Level 4.2 g/dL (3.5-5.0); Alkaline Phosphatase 95 U/L (39-117); Anion Gap 11 (12-20); Aspartate Amino Transferase 42 U/L (5-37); Blood Urea Nitrogen 16 mg/dL (9-16); Calcium 8.8 mg/dL (8.4-10.2); Carbon Dioxide 27 mmol/L (22-29); Chloride 109 mmol/L (96-108); Creatinine Clr Calc Pharmacy 138.1; Estimated Glomerular Filt Rate > 60; Potassium 3.6 mmol/L (3.3-5.1); Sodium 143 mmol/L (135-145); Total Protein 6.4 g/dL (6.5-8.0)
[2025-02-05 05:50] VITALS: BP 115/76; PULSE 75; RESP 16; TEMP 36.5; O2SAT 97
[2025-02-05 08:25] VITALS: RESP 20
[2025-02-05 10:42] VITALS: RESP 16
[2025-02-05 11:39] VITALS: BP 126/60; PULSE 71; RESP 16; TEMP 36.4; O2SAT 98
--- NOTE | 2025-02-05 13:33 | PC.NURSE ---
Report received from Lisa KELLER. Plan to move patient from ED 22 to ED BH 5.
--- NOTE | 2025-02-05 13:43 | PC.NURSE ---
Ambulated to pod, escorted by security. Steady gait. IPLOC bedsearch per CARE team for SI and hallucinations (as stated in RN to RN report). Care ongoing by this RN.
[2025-02-05 22:46] VITALS: BP 112/75; PULSE 69; RESP 16; TEMP 36.7; O2SAT 98
--- NOTE | 2025-02-05 23:47 | PC.NURSE ---
Patient sleeping, respirations even and non labored, appears comfortable at this time.
--- NOTE | 2025-02-06 03:48 | PC.NURSE ---
Patient awake and alert, skin pwd, resp even and non labored, speaking in full, clear sentences. denies SI/HI. reports intermittent AH. Patient resting, attempting to go back to sleep.
[2025-02-06 06:32] VITALS: BP 111/85; PULSE 70; RESP 14; TEMP 36.3; O2SAT 99
--- NOTE | 2025-02-06 07:14 | ECG_ITS ---
Test Reason : qt check Blood Pressure : */* mmHG Vent. Rate : 84 BPM Atrial Rate : 84 BPM P-R Int : 136 ms QRS Dur : 86 ms QT Int : 346 ms P-R-T Axes : 60 67 66 degrees QTcB Int : 408 ms Normal sinus rhythm with sinus arrhythmia Normal ECG When compared with ECG of 12-Mar-2024 17:14, No significant change was found Referred By: Magdalena Christensen Electronically Signed By: KAMALA CHERY
--- NOTE | 2025-02-06 10:01 | PHA.MEDREC ---
Addendum entered by aDsh Montgomery PharmD 02/06/25 10:11: reviewed Original Note: Pharmacy Consult ? Medication Reconciliation Pharmacy reviewed med rec done by nursing. Claims match what is confirmed.
[2025-02-06 12:44] VITALS: BP 131/76; PULSE 102; RESP 16; TEMP 36.4; O2SAT 95
[2025-02-06 12:56] VITALS: BMI 24.1
--- NOTE | 2025-02-06 13:03 | P.HPPS_ITS ---
HPI Date of Service: 02/06/25 Chief Complaint: Crisis Sources of Information: patient interviewed, chart reviewed and crisis/core team assessment reviewed HPI Subjective Notes: Hdz Warning and Conditional Voluntary Narrative: Patient is a 34-year-old male with history of schizoaffective disorder and methamphetamine use who self presented to [facility] due to increased auditory hallucinations and housing insecurity. Per crisis report, patient reports he has been homeless for the past few months and has been sleeping outside. He reports this is become very stressful. Patient reports he has not been prescribed psychiatric medications in a while and appears to be coping with the situation by using substances. He presents calm and cooperative. Alert and oriented x4. Denied SI/HI. Utox positive for cannabis. Patient reports cannabis and methamphetamine use. He does not have outpatient psychiatric providers. During admission assessment, patient presents alert and oriented x3. Calm and cooperative. Patient reports feeling good ; patient stated, I came in because I needed somewhere to rest my feet. I was walking from the mall to my aunt's house in [place] and I didn't have a phone to contact her. I wasn't actually having voices; that was a lie. I only have voices when I'm high and I was not high when I came in. I just want to leave and go to my aunt's house now . Patient denies having outpatient psychiatric providers. He denies history of SA/SIB. He reports sleep and appetite are good. Patient reports he has not used methamphetamine since 3 months ago . He reports daily marijuana use. utox positive for marijuana. Patient reports he is not interested in any referrals to outpatient psychiatric providers or substance abuse programs. Patient reports he has not taken any psychiatric medications in a long time , nor is he interested. Patient is apologetic for not being truthful in the ER and reports he will reach out to providers if he feels he needs help in the future . Past Psychiatric History: hx of 2 IPLOC. denies hx of SA/SIB. Does not have outpatient psychiatric providers. Is not prescribed any psychiatric medications. Medical Evaluation Reviewed: Yes PMFSH Family History: denies Social History: Lives with aunt. Single. 2 kids (9 and 10 y/o). Disability. GED. Substance History: Marijuana daily. Pt reports he used methamphetamine 3 months ago. Trauma History: denies Diagnostics Vital Signs (24Hr): Vital Signs - 24 hr 02/05/25 22:46 02/06/25 06:32 02/06/25 12:44 Temperature 98.1 F 97.4 F 97.5 F Pulse Rate 69 70 102 H Respiratory Rate 16 14 16 Blood Pressure 112/75 111/85 131/76 Pulse Oximetry 98 99 95 Oxygen Delivery Method Room Air Room Air Room Air BMI result Body Mass Index 24.1 Labs 02/05/25 00:20 02/05/25 00:20 Labs: Laboratory Results - last 48 hr 02/04/25 02/05/25 02/05/25 20:57 00:17 00:20 WBC 12.0 H RBC 3.76 L Hgb 11.6 L Hct 34.3 L MCV 91.2 MCH 30.9 MCHC 33.8 RDW 11.8 Plt Count 446 H MPV 8.5 L Immature Gran % (Auto) 0.3 Neut % (Auto) 57.4 Lymph % (Auto) 29.3 [place] % (Auto) 10.0 Eos % (Auto) 2.2 Baso % (Auto) 0.8 Lymph # (Auto) 3.5 [place] # (Auto) 1.2 Eos # (Auto) 0.3 Baso # (Auto) 0.1 Abs Immat Gran (auto) 0.03 Absolute Neuts (auto) 6.9 Absolute Nucleated RBC 0.000 Nucleated RBC % (auto) 0.0 Sodium 143 Potassium 3.6 Chloride 109 H Carbon Dioxide 27 Anion Gap 11 L BUN 16 Creatinine 0.81 Estim Creat Clear Calc 138.1 Estimated GFR > 60 Random Glucose 82 Calcium 8.8 Total Bilirubin 0.3 AST 42 H ALT 28 Alkaline Phosphatase 95 Total Protein 6.4 L Albumin 4.2 Urine Opiates Screen Not Detected Ur Buprenorphine Scrn Not Detected Ur Oxycodone Screen Not Detected Urine Methadone Screen Not Detected Urine Fentanyl Screen Not Detected Ur Barbiturates Screen Not Detected Ur Phencyclidine Scrn Not Detected Ur Amphetamines Screen Not Detected U Benzodiazepines Scrn Not Detected Urine Cocaine Screen Not Detected U Marijuana (THC) Screen POSITIVE H Ethyl Alcohol < 10 Influenza Type A (PCR) NEGATIVE Influenza Type B (PCR) NEGATIVE RSV RNA Qual (PCR) NEGATIVE SARS-CoV-2 RNA (RT-PCR) NEGATIVE Meds/Allergies Meds Home Medications ?Medication ?Instructions ?Recorded ?Confirmed ?Type olanzapine 10 mg tablet 10 mg PO BEDTIME depressive 02/05/25 02/05/25 History disorder Allergies Allergies Allergy/AdvReac Type Severity Reaction Status Date / Time No Known Allergies (No Known Allergy Verified 02/04/25 20:53 Allergies*) Mental Status Exam Mental Status Exam Narrative: Pt is alert and oriented; behavior is cooperative, friendly and calm; dressed in casual attire; mood is described as good ; eye contact appropriate; Speech is normal rate, volume and not pressured; thought process is organized; Thought content is on discharge; otherwise pertinent to relevant topics and without any delusional content, paranoid ideations or grandiosity; denies SI/HI/VH/AH. Does not appear to be responding to internal stimuli. Assessment & Plan Assessment & Plan (1) Schizoaffective disorder: Status: Acute Code(s): F25.9 - Schizoaffective disorder, unspecified (2) Housing insecurity: Status: Acute Code(s): Z59.819 - Housing instability, housed unspecified Plan Plan: CV 15 minute safety checks Discharge home Patient educated on: diagnosis and medication risk/benefits Reason for continued inpatient stay Substantial Risk for: stable for discharge Statement Statement: I have reviewed the history and physical and performed a pertinent examination on my patient. No changes have occurred unless specified. If the History and Physical was not performed prior to admission, the Hospitalist's service will be consulted for completing the admission physical. Time Spent With Patient Time: Total time managing care of this patient today _60___ minutes.
--- NOTE | 2025-02-06 13:03 | PM.PSYDC ---
DS: Providers Provider Date of admission: 02/06/25 11:47 Date of discharge: 02/06/25 Primary care physician: [facility] Admitting clinician: Chyna Yousif Attending physician on admission: Gustavo Rowland Attending physician on discharge: Gustavo Rowland Discharging clinician: Chyna Yousif DS: Medications Discharge Medications Home Medications: Home Medications ?Medication ?Instructions ?Recorded ?Confirmed olanzapine 10 mg tablet 10 mg PO BEDTIME depressive 02/05/25 02/05/25 disorder Mental Status Exam Mental Status Exam Narrative: Pt is alert and oriented; behavior is cooperative, friendly and calm; dressed in casual attire; mood is described as good ; eye contact appropriate; Speech is normal rate, volume and not pressured; thought process is organized; Thought content is on discharge; otherwise pertinent to relevant topics and without any delusional content, paranoid ideations or grandiosity; denies SI/HI/VH/AH. Does not appear to be responding to internal stimuli. Data Data Completed and Pending Completed studies during hospitalization [Text1]: 02/04/25 02/05/25 02/05/25 20:57 00:17 00:20 WBC 12.0 H RBC 3.76 L Hgb 11.6 L Hct 34.3 L MCV 91.2 MCH 30.9 MCHC 33.8 RDW 11.8 Plt Count 446 H MPV 8.5 L Immature Gran % (Auto) 0.3 Neut % (Auto) 57.4 Lymph % (Auto) 29.3 [place] % (Auto) 10.0 Eos % (Auto) 2.2 Baso % (Auto) 0.8 Lymph # (Auto) 3.5 [place] # (Auto) 1.2 Eos # (Auto) 0.3 Baso # (Auto) 0.1 Abs Immat Gran (auto) 0.03 Absolute Neuts (auto) 6.9 Absolute Nucleated RBC 0.000 Nucleated RBC % (auto) 0.0 Sodium 143 Potassium 3.6 Chloride 109 H Carbon Dioxide 27 Anion Gap 11 L BUN 16 Creatinine 0.81 Estim Creat Clear Calc 138.1 Estimated GFR > 60 Random Glucose 82 Calcium 8.8 Total Bilirubin 0.3 AST 42 H ALT 28 Alkaline Phosphatase 95 Total Protein 6.4 L Albumin 4.2 Urine Opiates Screen Not Detected Ur Buprenorphine Scrn Not Detected Ur Oxycodone Screen Not Detected Urine Methadone Screen Not Detected Urine Fentanyl Screen Not Detected Ur Barbiturates Screen Not Detected Ur Phencyclidine Scrn Not Detected Ur Amphetamines Screen Not Detected U Benzodiazepines Scrn Not Detected Urine Cocaine Screen Not Detected U Marijuana (THC) Screen POSITIVE H Ethyl Alcohol < 10 Influenza Type A (PCR) NEGATIVE Influenza Type B (PCR) NEGATIVE RSV RNA Qual (PCR) NEGATIVE SARS-CoV-2 RNA (RT-PCR) NEGATIVE DS: Summary Hospital Course Hospital Course: Patient is a 34-year-old male with history of schizoaffective disorder and methamphetamine use who self presented to [facility] due to increased auditory hallucinations and housing insecurity. Per crisis report, patient reports he has been homeless for the past few months and has been sleeping outside. He reports this is become very stressful. Patient reports he has not been prescribed psychiatric medications in a while and appears to be coping with the situation by using substances. He presents calm and cooperative. Alert and oriented x4. Denied SI/HI. Utox positive for cannabis. Patient reports cannabis and methamphetamine use. He does not have outpatient psychiatric providers. During admission assessment, patient presents alert and oriented x3. Calm and cooperative. Patient reports feeling good ; patient stated, I came in because I needed somewhere to rest my feet. I was walking from the mall to my aunt's house in [place] and I didn't have a phone to contact her. I wasn't actually having voices; that was a lie. I only have voices when I'm high and I was not high when I came in. I just want to leave and go to my aunt's house now . Patient denies having outpatient psychiatric providers. He denies history of SA/SIB. He reports sleep and appetite are good. Patient reports he has not used methamphetamine since 3 months ago . He reports daily marijuana use. utox positive for marijuana. Patient reports he is not interested in any referrals to outpatient psychiatric providers or substance abuse programs. Patient reports he has not taken any psychiatric medications in a long time , nor is he interested. Patient is apologetic for not being truthful in the ER and reports he will reach out to providers if he feels he needs help in the future . Plan: CV 15 minute safety checks Discharge home Patient reports he will follow up with outpatient providers. Status at Discharge Cognitive/behavioral status at discharge: Patient has insight and demonstrates good judgment in terms of wanting to pursue treatment. Patient has a safety plan that includes presenting to the closest ER or calling 911 if feeling unsafe. Functional status at discharge: independent ambulation Overall status at discharge: patient is back to baseline Time Spent with Patient Time attestation: Total time managing care of this patient today _20___ minutes. Time spent: Less than 30 minutes Discharge Plan Discharge Anticipated Discharge Date/Time: 02/06/25 13:03 Patient Disposition: Home, Self-Care Discharge Diagnosis: Schizoaffective d/o Referrals: [facility] [Primary Care Provider, Medical] - 1 Week Discharge Medications: Continued olanzapine 10 mg tablet 10 mg PO BEDTIME Discharge Orders: Discharge Order (Routine); Ordered 02/06/25 Ordered By: Chyna Yousif Diet: Regular diet Activity on Discharge: As tolerated Stand Alone Forms: Patient Portal Discharge page, Community Support Print Language: Estonian Care Plan Goals: Maintain mood and safe behaviors Continue to pursue sobriety Practice coping skills Continue with outpatient providers and reach out to them as needed Health Concerns: Mood stability and behaviors Sobriety Plan of Treatment: Follow up with your PCP, psychiatric provider and other outpatient providers regarding above concerns Take medications as prescribed Assessment: Patient has insight and demonstrates good judgment in terms of wanting to pursue treatment. Patient has a safety plan that includes presenting to the closest ER or calling 911 if feeling unsafe. Discharge Date/Time: 02/06/25 13:22
--- NOTE | 2025-02-06 13:12 | PC.ADMIT ---
Addendum entered by Christi Luis RN 02/06/25 14:31: Patient was offered flu shot while admitted and refused stating that he just wanted to leave Original Note: Lester was admitted to on a 13a with a diagnosis of unspecified Schizoaffective Disorder. He was calm and cooperative with manager of change. He denied all psych symptoms, denies SI/HI, denies hallucinations. According to the crisis eval he reported increased hallucinations and homelessness. On arrival he reported that he lied about the hallucinations because he is homeless and cold. He was placed on 15 minute safety checks. Discharged after meeting with provider.
== END 2025-02-06 13:22 | disposition home or self-care (01) | DRG 750 ==
LOC: HO.ED 02-05 13:33 → HO.PADLT16 02-06 12:21
PROVIDERS: Physician Assistant; Admitting Provider Registered Nurse; Emergency Provider Emergency Medicine; Visit Provider Registered Nurse
DX: F25.9 Schizoaffective disorder, unspecified (principal); B34.9 Viral infection, unspecified; F15.90 Other stimulant use, unspecified, uncomplicated; F12.90 Cannabis use, unspecified, uncomplicated; M54.2 Cervicalgia; M79.601 Pain in right arm; M79.602 Pain in left arm; M79.673 Pain in unspecified foot; Z59.02 Unsheltered homelessness
CPT/HCPCS: 36415; 80053; 80307; 85025; 87637; 93005; 99285; S9485

== ENCOUNTER → 2025-02-06 07:14 | Outpatient (BNV) | payer MEDICAID, SELFPAY | PROVIDERS: Admitting Provider Registered Nurse; Emergency Provider Emergency Medicine; Visit Provider Internal Medicine | DX: Z13.6 Encounter for screening for cardiovascular disorders (principal) | CPT/HCPCS: 93010 ==

== ENCOUNTER → 2025-02-06 11:47 | Outpatient (BNV) | payer OTHER, SELFPAY | PROVIDERS: Admitting Provider Registered Nurse; Emergency Provider Emergency Medicine; Visit Provider Registered Nurse | DX: F25.9 Schizoaffective disorder, unspecified (principal); Z59.819 Housing instability, housed unspecified | CPT/HCPCS: 99233; 99499 ==